=== PATIENT | male | born 1945 | race Hispanic/Latino ===

== ENCOUNTER 2018-04-12 10:57 | Observation (INO) | payer OTHER ==
[~2018-04-12] VITALS: Ht 167.6 cm; Wt 95.3 kg
[2018-04-12] MEDS ORDERED: SODIUM CHLORIDE 0.9% 1000ML 1,000 ML IV STA (11:54)
[2018-04-12] MEDS ORDERED: ASPIRIN 81 MG CHEW TAB PO ONE (12:00)
[2018-04-12 12:15] LABS: BASOPHILS # (AUTO) 0.1 (0.0-0.1); BASOPHILS % 0.6 % (0.0-1.0); EOSINOPHILS # (AUTO) 0.4 (0.0-0.4); EOSINOPHILS % 3.7 % (0.0-6.0); HEMOGLOBIN 16.8 g/dL (14.0-18.0); LYMPHOCYTES # (AUTO) 2.5 (1.0-3.2); LYMPHOCYTES % 23.6 % (18.0-39.1); MEAN CORPUSCULAR HEMOGLOBIN 28.7 pg (28-32); MEAN CORPUSCULAR HGB CONC 32.3 g/dL (31-35); MEAN CORPUSCULAR VOLUME 88.9 fL (81-99); MONOCYTES # (AUTO) 1.3 (0.2-0.8); MONOCYTES % 11.9 % (4.4-11.3); NEUTROPHILS # (AUTO) 6.3 (2.1-6.9); NEUTROPHILS % 59.7 % (38.7-80.0); PLATELET COUNT 184 x10e3/uL (140-360); RED BLOOD COUNT 5.85 x10e6/uL (4.3-5.7); RED CELL DISTRIBUTION WIDTH 14.6 % (11.7-14.4)
--- NOTE | 2018-04-12 12:27 | Diagnostic Imaging Report ---
EXAM: XR CHEST 1 VIEW DATE: 04/12/2018 11:54 AM INDICATION: Weakness COMPARISON: None FINDINGS: Lines and Tubes: None Heart and Mediastinum: Heart upper limits of normal. Mediastinum is prominent. Right paratracheal density statistically confluence vascular structures. Lungs and Pleura: Patchy opacities lung bases. Dorinda/proximal bronchi poorly evaluated. Bones and Soft Tissues: No acute findings. IMPRESSION: 1. Suboptimal exam secondary to poor technique. 2. Patchy basilar opacities could represent atelectasis, edema, or pneumonia. 3. Prominence of the mediastinum presumably technical. Correlation with history recommended. Follow-up 2 view chest x-ray upon resolution of acute symptoms recommended. Signed by: Dr. Philip Foy MD on 04/12/2018 12:23 PM
--- NOTE | 2018-04-12 12:29 | Diagnostic Imaging Report ---
EXAMINATION: Head CT HISTORY: Right upper extremity numbness COMPARISON: None. TECHNIQUE: Multidetector axial images were obtained without contrast from the foramen magnum to the vertex . The images were reconstructed using brain and bone algorithms. Thin section brain images were reformatted into coronal and sagittal planes. Intravenous contrast: None. Image quality: Motion/streaking artifact limits the evaluation of the skull base and posterior cranial fossa. Dose modulation, iterative reconstruction, and/or weight based adjustment of the mA/kV was utilized to reduce the radiation dose to as low as reasonably achievable. FINDINGS: Parenchyma: 1. Few scattered metallic or periventricular white matter hypodensities, most likely nonspecific chronic microvascular ischemic changes. Tiny chronic lacunar infarct in the left caudate nucleus. 2. No mass or hemorrhage. No CT evidence of acute territorial vascular insult. Extra-axial spaces:No abnormal density. No extra-axial fluid collections Brain volume: Normal for age. Ventricles: No hydrocephalus or displacement. Arteries: Dilatation and tortuosity of the intracranial vessels likely related to atherosclerotic, vertebrobasilar dolichoectasia. Dural sinuses: No abnormal density. Extra-axial spaces: No abnormal density. Foramen magnum: No mass, Chiari malformation, or basilar invagination. Sella: No obvious mass. Paranasal/mastoid sinuses: Imaged portions unremarkable. Skull/Scalp: No lytic or blastic lesions. No fractures. IMPRESSION: 1. No acute intracranial hemorrhage or cortical infarct. 2. Mild chronic microvascular ischemic changes. Signed by: Dr. Rosie Batista M.D. on 04/12/2018 12:25 PM
[2018-04-12 12:32] LABS: INR 0.93; PROTHROMBIN TIME 13.3 seconds (11.9-14.5)
[2018-04-12 12:33] LABS: PARTIAL THROMBOPLASTIN TIME 33.4 seconds (23.8-35.5)
[2018-04-12 12:36] LABS: CLARITY,URINE CLEAR (CLEAR); COLOR,URINE YELLOW (YELLOW); KETONES,URINE NEGATIVE (NEGATIVE); LEUKOCYTE ESTERASE ,URINE NEGATIVE (NEGATIVE); NITRITE,URINE POSITIVE (NEGATIVE); PROTEIN,URINE DIPSTICK NEGATIVE (NEGATIVE)
[2018-04-12 12:37] LABS: BILIRUBIN,URINE NEGATIVE (NEGATIVE); URINE UROBILINOGEN 0.2 mg/dL (0.2 - 1)
[2018-04-12 12:40] LABS: ALANINE AMINOTRANSFERASE 9 IU/L (0-55); ALBUMIN 3.7 g/dL (3.5-5.0); ALKALINE PHOSPHATASE 74 IU/L (40-150); ANION GAP 15.1 mmol/L (8-16); BLOOD UREA NITROGEN 17 mg/dL (7-26); BUN/CREATININE RATIO 18 (6-25); CALCIUM 9.5 mg/dL (8.4-10.2); CARBON DIOXIDE 22 mmol/L (22-29); CHLORIDE 108 mmol/L (98-107); CREATINE KINASE 165 IU/L (30-200); CREATININE, SERUM 0.96 mg/dL (0.72-1.25); EST GLOMERULAR FILTRATION RATE > 60 ML/MIN (60-); GLUCOSE 100 mg/dL (74-118); LIPASE 21 U/L (8-78); MAGNESIUM 2.2 MG/DL (1.3-2.1); POTASSIUM 4.1 mmol/L (3.5-5.1); SODIUM 141 mmol/L (136-145)
[2018-04-12 12:46] LABS: BACTERIA,URINE MODERATE /HPF; RBC,URINE 0-5 /HPF (0-5)
[2018-04-12] MEDS: SODIUM CHLORIDE 0.9% 1000ML 1,000 ML IV SCH (14:12)
[2018-04-12] MEDS ORDERED: ONDANSETRON HCL INJ 2 MG/ML VIAL IV PRN (14:15)
--- NOTE | 2018-04-12 15:28 | Diagnostic Imaging Report ---
EXAMINATION: MRI of the brain without contrast. HISTORY: Right sided upper and lower extremity weakness since this morning COMPARISON: Head CT on 04/12/2018 TECHNIQUE: Sagittal T2; axial DWI, T2, FLAIR, T1-IR, T2 gradient echo; coronal FLAIR. IMAGE QUALITY: Adequate. FINDINGS: Parenchyma: 1. Subtle focal area of DWI hyperintensity Lateral to the posterior body of the left lateral ventricle, without definite corresponding ADC map hypointensity, most likely corresponds to T2 shine through effect. 2. Few scattered and mildly confluent periventricular white matter T2 and FLAIR hyperintense foci, most likely nonspecific chronic microvascular ischemic changes. 3. Again noted tiny chronic lacunar infarct in the body of the left caudate nucleus. 4. Change small chronic cortical infarct in the right cerebellum. 5. No mass, hemorrhage, acute or chronic infarcts. Skull: Unremarkable. Vessels: Expected flow voids present in the major arteries and dural sinuses. Extra-axial spaces: No abnormal signal intensity or mass effect. Brain volume: Within normal limits for age. Ventricles: No hydrocephalus or displacement. Foramen magnum: Unremarkable. Sella: Unremarkable. Paranasal / mastoid sinuses: No significant inflammatory disease. IMPRESSION: 1. No acute infarcts. 2. Mild chronic microvascular ischemic changes. Signed by: Dr. Rosie Batista M.D. on 04/12/2018 3:25 PM
[2018-04-12] MEDS ORDERED: SODIUM CHLORIDE 0.9% 50ML 50 ML ONE (15:40)
[2018-04-12] MEDS: CEFTRIAXONE SOD 1 GM VIAL IV SCH (15:45)
[2018-04-12 17:38] VITALS: BP 133/67
[2018-04-12 17:39] VITALS: BP 133/67
[2018-04-12 17:44] VITALS: BP 133/67
[2018-04-12] MEDS ORDERED: DOXAZOSIN MESYLA2 MG PO (17:57)
[2018-04-12] MEDS ORDERED: LEVOTHYROXINE50 MCG PO (17:57)
[2018-04-12] MEDS ORDERED: FINASTERIDE5 MG PO (17:57)
[2018-04-12 20:00] VITALS: BP 121/71
[2018-04-12 22:15] VITALS: BP 114/68
[2018-04-13] MEDS: SODIUM CHLORIDE 0.9% 1000ML 1,000 ML IV SCH ×2 (00:12→08:55)
[2018-04-13 01:01] LABS: CREATINE KINASE 115 IU/L (30-200)
[2018-04-13 03:30] VITALS: BP 117/71
[2018-04-13 05:26] LABS: BASOPHILS % 0.4 % (0.0-1.0); EOSINOPHILS # (AUTO) 0.5 (0.0-0.4); EOSINOPHILS % 4.7 % (0.0-6.0); HEMATOCRIT 48.3 % (38.2-49.6); HEMOGLOBIN 15.8 g/dL (14.0-18.0); LYMPHOCYTES # (AUTO) 2.1 (1.0-3.2); LYMPHOCYTES % 21.8 % (18.0-39.1); MEAN CORPUSCULAR HEMOGLOBIN 29.3 pg (28-32); MEAN CORPUSCULAR HGB CONC 32.7 g/dL (31-35); MEAN CORPUSCULAR VOLUME 89.4 fL (81-99); MONOCYTES # (AUTO) 1.1 (0.2-0.8); MONOCYTES % 11.5 % (4.4-11.3); NEUTROPHILS % 61.1 % (38.7-80.0); PLATELET COUNT 177 x10e3/uL (140-360); RED CELL DISTRIBUTION WIDTH 14.8 % (11.7-14.4)
[2018-04-13 05:53] LABS: ALANINE AMINOTRANSFERASE 8 IU/L (0-55); ALBUMIN 3.2 g/dL (3.5-5.0); ALKALINE PHOSPHATASE 62 IU/L (40-150); ANION GAP 13.5 mmol/L (8-16); BLOOD UREA NITROGEN 14 mg/dL (7-26); BUN/CREATININE RATIO 13 (6-25); CALCIUM 8.8 mg/dL (8.4-10.2); CARBON DIOXIDE 24 mmol/L (22-29); CHLORIDE 109 mmol/L (98-107); CREATINE KINASE 99 IU/L (30-200); CREATININE, SERUM 1.04 mg/dL (0.72-1.25); EST GLOMERULAR FILTRATION RATE > 60 ML/MIN (60-); GLUCOSE 97 mg/dL (74-118); POTASSIUM 4.5 mmol/L (3.5-5.1); SODIUM 142 mmol/L (136-145)
[2018-04-13 08:00] VITALS: BP 126/71
[2018-04-13 08:30] VITALS: BP 126/71
[2018-04-13 08:32] VITALS: BP 126/71
[2018-04-13] MEDS ORDERED: ASPIRIN 81 MG ENTERIC COATED PO ONE (09:03)
[2018-04-13] MEDS ORDERED: FINASTERIDE 5 MG TAB PO SCH (09:15)
[2018-04-13] MEDS ORDERED: DOXAZOSIN MESYLATE 2 MG TAB PO SCH (09:15)
[2018-04-13] MEDS ORDERED: MECLIZINE HCL 12.5 MG TAB PO PRN (09:15)
[2018-04-13] MEDS ORDERED: LEVOTHYROXINE SODIUM 50 MCG TAB PO SCH (09:15)
[2018-04-13] MEDS ORDERED: MECLIZINE HCL 12.5 MG TAB PO ONE (09:15)
--- NOTE | 2018-04-13 11:14 | History and Physical ---
[facility] PRIMARY CARE PHYSICIAN: Not known. CHIEF COMPLAINT: Right-sided weakness. HISTORY: Patient is a 72-year-old male with a urinary tract infection. The patient does have enlarged prostate and low thyroid level, taking levothyroxine, finasteride and doxazosin. The patient is stable. He had multiple imaging tests done in the emergency room. The CAT scan of the brain was negative and scanning with brain MRI showed that he has no acute infarct. He does have mild chronic microvascular ischemic changes. Patient is otherwise stable other than complaint of some numbness to the right facial area along with the right-sided upper and lower extremity weakness. Patient is improving. He walked with a cane to the right side. PAST MEDICAL HISTORY: Enlarged prostate, hypothyroidism, and osteoarthritis. PAST SURGICAL HISTORY: Hernia repair and left foot surgery. SOCIAL HISTORY: Patient does not smoke or use alcohol. No recreational drugs. ALLERGIES: NO KNOWN ALLERGY. HOME MEDICATIONS: Levothyroxine, doxazosin, and finasteride. PHYSICAL EXAMINATION VITAL SIGNS: Temperature 97, blood pressure 126/71, pulse rate 72, respirations 18. GENERAL: Patient is in no acute distress. He is awake. HEENT: Normocephalic, atraumatic. Sclerae anicteric. NECK: Supple grossly. PULMONARY: Diminished breath sounds, but without any wheezing or rales. CARDIOVASCULAR: S1 and S2. Regular rate and rhythm. ABDOMEN: Soft. Obese. Nontender, no distension. EXTREMITIES: No cyanosis, clubbing, or edema. NEUROLOGIC: Grossly no focal deficit other than symptomatic dizziness and numbness of the right thigh. LABORATORY DATA: Sodium is 142, potassium 4.5, chloride 109, bicarb 24, BUN 14, creatinine 1.0, and glucose 97. WBC 9.8, hemoglobin 15.8, hematocrit 48.3, and platelets are 177. IMAGING: MRI of the brain without contrast, CT scan without contrast, and chest x-ray are all unremarkable. IMPRESSION 1. Dizziness, could be secondary to benign positional vertigo. 2. Enlarged prostate with most likely early prostatitis. His urinalysis had shown that he has positive nitrate, negative for leukocyte esterase, and moderate bacteria. Microbiology is still pending. PLAN: Continue with Rocephin. Resume home medications. Discontinue IV fluids. Give the patient meclizine as needed. Carotid Doppler and echocardiogram and if those are negative preliminary, the patient may go home with a baby aspirin and Cipro. The patient is otherwise stable. Prescription on chart in case patient will go home today. Job#: [id number] ADAM
[2018-04-13 11:34] VITALS: BP 116/56
[2018-04-13 13:49] LABS: CREATINE KINASE 89 IU/L (30-200)
[2018-04-13] MEDS: CEFTRIAXONE SOD 1 GM VIAL IV SCH (15:12)
[2018-04-13] MEDS ORDERED: CIPRO500 MG PO (16:07)
[2018-04-13] MEDS ORDERED: MECLIZINE HCL12.5 MG PO (16:07)
[2018-04-13] MEDS ORDERED: ECOTRIN81 MG (16:08)
[2018-04-13] MEDS ORDERED: ACETAMINOPHEN 325 MG TAB PO ONE (16:15)
[2018-04-14] MEDS ORDERED: ASPIRIN 81 MG ENTERIC COATED PO SCH (09:00)
--- OUTSIDE RECORDS SUMMARY | 2018-04-14 14:06 | XMS REPORT ---
Author Author [facility] Address Unknown Phone Unavailable Care Team Providers Care Medical Specialist Name Role Phone Naya HAWKINS Unavailable Unavailable Problems This patient has no known problems. Allergies, Adverse Reactions, Alerts This patient has no known allergies or adverse reactions. Medications This patient has no known medications. Results Test Description Test Time Test Comments Text Results Atomic Results Result Comments MRI BRAIN WO 2018-04-12 15:21:00 [place] [address] Patient Name: SYED LANDIS MR #: [id number] : 1945 Age/Sex: 72/M Req #: [id number] Adm Physician: EVELYN HAWKINS Ordered by: YULIANA ROACH [employer]INE[employer]ING [employer] LIAISON Report #: [id number] Location: [facility] Room/Bed: [place] [address] Procedure: [id number] MRI/MRI BRAIN WO Exam Date: Exam Time: REPORT STATUS: Signed EXAMINATION: MRI of the brain without contrast. HISTORY: Right sided upper and lower extremity weakness since this morning COMPARISON: Head CT on 04/12/2018 TECHNIQUE: Sagittal T2; axial DWI, T2, FLAIR, T1-IR, T2 gradient echo; coronal FLAIR. IMAGE QUALITY: Adequate. FINDINGS: Parenchyma: 1. Subtle focal area of DWI hyperintensity Lateral to the posterior body of the left lateral ventricle, without definite corresponding ADC map hypointensity, most likely corresponds to T2 shine through effect. 2. Few scattered and mildly confluent periventricular white matter T2 and FLAIR hyperintense foci, most likely nonspecific chronic microvascular ischemic changes. 3. Again noted tiny chronic lacunar infarct in the body of the left caudate nucleus. 4. Change small chronic cortical infarct in the right cerebellum. 5. No mass, hemorrhage, acute or chronic infarcts. Skull: Unremarkable. Vessels: Expected flow voids present in the major arteries and dural sinuses. Extra-axial spaces: No abnormal signal intensity or mass effect. Brain volume: Within normal limits for age. Ventricles: No hydrocephalus or displacement. Foramen magnum: Unremarkable. Sella: Unremarkable. Paranasal / mastoid sinuses: No significant inflammatory disease. IMPRESSION: 1. No acute infarcts. 2. Mild chronic microvascular ischemic changes. Signed by: Dr. Libby Batista M.D. on 04/12/2018 3:25 PM Dictated By: LIBBY BATISTA MD 1525 Transcribed By: OLGA on 04/12/18 1525 COPY TO: YULIANA ROACH NP CT BRAIN WO 2018-04-12 12:23:00 [place] [address] Patient Name: SYED LANDIS MR #: [id number] : 1945 Age/Sex: 72/M Req #: [id number] Adm Physician: Ordered by: YULIANA ROACH NP Report #: [id number] Location: ER Room/Bed: Procedure: [id number] CT/CT BRAIN WO Exam Date: 04/12/18 Exam Time: 1210 REPORT STATUS: Signed EXAMINATION: Head CT HISTORY: Right upper extremity numbness COMPARISON: None. TECHNIQUE: Multidetector axial images were obtained without contrast from the foramen magnum to the vertex . The images were reconstructed using brain and bone algorithms. Thin section brain images were reformatted into coronal and sagittal planes. Intravenous contrast: None. Image quality: Motion/streaking artifact limits the evaluation of the skull base and posterior cranial fossa. Dose modulation, iterative reconstruction, and/or weight based adjustment of the mA/kV was utilized to reduce the radiation dose to as low as reasonably achievable. FINDINGS: Parenchyma: 1. Few scattered metallic or periventricular white matter hypodensities, most likely nonspecific chronic microvascular ischemic changes. Tiny chronic lacunar infarct in the left caudate nucleus. 2. No mass or hemorrhage. No CT evidence of acute territorial vascular insult. Extra-axial spaces:No abnormal density. No extra-axial fluid collections Brain volume: Normal for age. Ventricles: No hydrocephalus or displacement. Arteries: Dilatation and tortuosity of the intracranial vessels likely related to atherosclerotic, vertebrobasilar dolichoectasia. Dural sinuses: No abnormal density. Extra-axial spaces: No abnormal density. Foramen magnum: No mass, Chiari malformation, or basilar invagination. Sella: No obvious mass. Paranasal/mastoid sinuses: Imaged portions unremarkable. Skull/Scalp: No lytic or blastic lesions. No fractures. IMPRESSION: 1. No acute intracranial hemorrhage or cortical infarct. 2. Mild chronic microvascular ischemic changes. Signed by: Dr. Libby Batista M.D. on 04/12/2018 12:25 PM Dictated By: LIBBY BATISTA MD 1225 Transcribed By: OLGA on 04/12/18 1225 COPY TO: YULIANA ROACH NP CHEST SINGLE (PORTABLE) 2018-04-12 12:21:00 [place] [address] Patient Name: SYED LANDIS MR #: [id number] : 1945 Age/Sex: 72/M Req #: [id number] Adm Physician: Ordered by: YULIANA ROACH NP Report #: [id number] Location: ER Room/Bed: Procedure: [id number] DX/CHEST SINGLE (PORTABLE) Exam Date: 04/12/18 Exam Time: 1210 REPORT STATUS: Signed EXAM: XR CHEST 1 VIEW DATE: 04/12/2018 11:54 AM INDICATION: Weakness COMPARISON: None FINDINGS: Lines and Tubes: None Heart and Mediastinum: Heart upper limits of normal. Mediastinum is prominent. Right paratracheal density statistically confluence vascular structures. Lungs and Pleura: Patchy opacities lung bases. Dorinda/proximal bronchi poorly evaluated. Bones and Soft Tissues: No acute findings. IMPRESSION: 1. Suboptimal exam secondary to poor technique. 2. Patchy basilar opacities could represent atelectasis, edema, or pneumonia. 3. Prominence of the mediastinum presumably technical. Correlation with history recommended. Follow-up 2 view chest x-ray upon resolution of acute symptoms recommended. Signed by: Dr. Philip Foy MD on 04/12/2018 12:23 PM Dictated By: PHILIP FOY MD 1223 Transcribed By: OLGA on 04/12/183 COPY TO: YULIANA ROACH NP
== END 2018-04-13 17:05 | disposition home or self-care (01) ==
LOC: ER 10:57 → ERHOLD 14:12 → IMCU 17:16
PROVIDERS: ADMIT Internal Medicine; ATTEND Internal Medicine
DX: N39.0 Urinary tract infection, site not specified (principal); R42 Dizziness and giddiness; R53.1 Weakness; E03.9 Hypothyroidism, unspecified; N40.0 Benign prostatic hyperplasia without lower urinary tract symptoms; I08.1 Rheumatic disorders of both mitral and tricuspid valves; B96.20 Unspecified Escherichia coli [E. coli] as the cause of diseases classified elsewhere
CPT/HCPCS: 36415; 70450; 70551; 71045; 80053 ×2; 81001; 82550 ×2; 82553 ×2; 83690; 83735; 83880; 84443; 84484 ×2; 85025 ×2; 85610; 85730; 87086; 87186; 87400; 93005; 93306; 93880; 99284; G0378 ×2; J0696 ×2; J7030 ×2

== ENCOUNTER 2019-08-13 18:57 | Inpatient (IN) | payer OTHER ==
[~2019-08-13] VITALS: Ht 172.7 cm; Wt 100.2 kg
[~2019-08-13 18:57] MED LIST: CIPRO500 MG PO; DOXAZOSIN MESYLA2 MG PO; ECOTRIN81 MG; FINASTERIDE5 MG PO; LEVOTHYROXINE50 MCG PO; MECLIZINE HCL12.5 MG PO
[2019-08-13] MEDS ORDERED: SODIUM CHLORIDE 0.9% 1000ML 1,000 ML IV SCH (19:45)
[2019-08-13] MEDS ORDERED: ACETAMINOPHEN 325 MG TAB PO ONE (19:45)
[2019-08-13] MEDS ORDERED: CEFEPIME 2 GM/NS 0.9% 100 ML 100 ML IV ONE (19:45)
[2019-08-13 20:01] LABS: BASOPHILS % 0.2 % (0.0-1.0); EOSINOPHILS % 0.1 % (0.0-6.0); HEMATOCRIT 48.8 % (38.2-49.6); HEMOGLOBIN 15.9 g/dL (14.0-18.0); LYMPHOCYTES # (AUTO) 0.9 (1.0-3.2); LYMPHOCYTES % 4.9 % (18.0-39.1); MEAN CORPUSCULAR HEMOGLOBIN 28.3 pg (28-32); MEAN CORPUSCULAR HGB CONC 32.6 g/dL (31-35); MONOCYTES % 11.4 % (4.4-11.3); NEUTROPHILS # (AUTO) 14.8 (2.1-6.9); NEUTROPHILS % 82.8 % (38.7-80.0); PLATELET COUNT 198 x10e3/uL (140-360); RED BLOOD COUNT 5.61 x10e6/uL (4.3-5.7); RED CELL DISTRIBUTION WIDTH 14.7 % (11.7-14.4)
[2019-08-13 20:12] LABS: INR 1.15; PROTHROMBIN TIME 15.5 seconds (11.9-14.5)
[2019-08-13 20:13] LABS: PARTIAL THROMBOPLASTIN TIME 41.7 seconds (23.8-35.5)
[2019-08-13 20:22] LABS: ALANINE AMINOTRANSFERASE 8 IU/L (0-55); ALBUMIN 3.1 g/dL (3.5-5.0); ALBUMIN/GLOBULIN RATIO 0.8 (0.8-2.0); ALKALINE PHOSPHATASE 65 IU/L (40-150); ANION GAP 15.8 mmol/L (8-16); BLOOD UREA NITROGEN 18 mg/dL (7-26); BUN/CREATININE RATIO 16 (6-25); CALCIUM 8.7 mg/dL (8.4-10.2); CARBON DIOXIDE 18 mmol/L (22-29); CHLORIDE 103 mmol/L (98-107); CREATININE, SERUM 1.13 mg/dL (0.72-1.25); EST GLOMERULAR FILTRATION RATE > 60 ML/MIN (60-); GLUCOSE 114 mg/dL (74-118); POTASSIUM 3.8 mmol/L (3.5-5.1); SODIUM 133 mmol/L (136-145)
[2019-08-13 20:24] LABS: BILIRUBIN,URINE NEGATIVE (NEGATIVE); CLARITY,URINE SL CLOUDY (CLEAR); COLOR,URINE YELLOW (YELLOW); KETONES,URINE TRACE (NEGATIVE); LEUKOCYTE ESTERASE ,URINE TRACE (NEGATIVE); NITRITE,URINE POSITIVE (NEGATIVE); PROTEIN,URINE DIPSTICK 1+ (NEGATIVE); URINE UROBILINOGEN 1 mg/dL (0.2 - 1)
[2019-08-13 20:38] LABS: BACTERIA,URINE MODERATE /HPF; EPITHELIAL CELLS,URINE FEW /LPF
[2019-08-13 20:48] LABS: CREATINE KINASE 458 IU/L (30-200)
--- NOTE | 2019-08-13 20:58 | Diagnostic Imaging Report ---
EXAM: XR CHEST 1 VIEW INDICATION: Fever. Fall. Weakness. COMPARISON: 04/12/2018. FINDINGS: Soft tissue attenuation particularly in the left lower hemithorax. Lines and Tubes: None Heart and Mediastinum: Cardiac silhouette is prominent, likely magnification by technique. Lungs and Pleura: The lungs are mildly hyperinflated. Patchy density in the lung bases suggestive of atelectasis. Bones and Soft Tissues: No acute displaced fracture. IMPRESSION: Suboptimal inflation. Bibasilar subsegmental atelectasis. Signed by: Dr. Luciano Rey M.D. on 08/13/2019 8:55 PM
[2019-08-13] MEDS: SODIUM CHLORIDE 0.9% 1000ML 1,000 ML IV SCH ×2 (21:04→23:08)
--- NOTE | 2019-08-13 21:35 | Diagnostic Imaging Report ---
EXAMINATION: Head and cervical spine CT without contrast. HISTORY: Status post fall, weakness, trauma COMPARISON: Head CT 04/12/2018 TECHNIQUE: Multidetector axial images were obtained without contrast from the foramen magnum to the vertex and through the cervical spine. The images were reconstructed using brain and bone algorithms. Thin section brain images were reformatted into coronal and sagittal planes. Dose modulation, iterative reconstruction, and/or weight based adjustment of the mA/kV was utilized to reduce the radiation dose to as low as reasonably achievable. Image quality: Artifact from patient motion limits evaluation of the skull base/posterior cranial fossa, however this images were repeated.. HEAD CT FINDINGS: Skull/scalp: No lytic or blastic lesions. No fractures. Parenchyma: Persistent mild white matter chronic microvascular ischemic changes and a small chronic lacunar infarct in the left probably due to. No mass, hemorrhage or CT evidence of acute vascular insult. Brain volume: Normal for age. Ventricles: No hydrocephalus or displacement. Arteries: Elongation, dilatation, tortuosity and increased density of the vertebral basilar arteries, likely from atherosclerosis with dolichoectasia . Dural sinuses: No abnormal density. Extra-axial spaces: No abnormal density. Foramen magnum: No mass, Chiari malformation, or basilar invagination. Sella: No obvious mass. Paranasal/mastoid sinuses: Imaged portions unremarkable. CERVICAL SPINE CT FINDINGS: Alignment:Reversal of the cervical lordosis which may be related to multiple spot positional.. Soft tissues: Normal. Vertebrae: Normal height and density. No acute fracture, infection or neoplasm. Degenerative changes: Mild degenerative changes at C5-C6 and C6-C7 without significant spinal canal or foraminal stenoses. IMPRESSION: Head CT: 1. No acute postraumatic intracranial hemorrhage. 2. Mild chronic microvascular ischemic changes, stable compared to head CT of 04/12/2018. Cervical spine CT: 1. No acute fractures or dislocations. 2. Chronic degenerative changes as described. Note: Acute post traumatic spinal cord, vascular or ligamentous injury cannot adequately be assessed with CT. Signed by: Dr. Rosie Batista M.D. on 08/13/2019 9:32 PM
[2019-08-13] MEDS ORDERED: SODIUM CHLORIDE 0.9% 1000ML 1,000 ML IV ONE ×2 (22:00→22:15)
[2019-08-13] MEDS ORDERED: LOPERAMIDE2 MG PO (22:13)
--- NOTE | 2019-08-13 22:30 | NUR ---
Patient remains alert and oriented and states he feels better. Will continue to monitor patient closely due to blood pressure. MD aware of vital signs.
--- NOTE | 2019-08-13 22:37 | Diagnostic Imaging Report ---
EXAM: Scrotal Ultrasound with Duplex INDICATION: Scrotal pain COMPARISON: None TECHNIQUE: Transverse and longitudinal images were obtained of the scrotum with grayscale imaging, color Doppler and spectral waveform analysis. FINDINGS: Right testis: Size: 4.1 x 2 x 3.2 cm, normal in size. Echogenicity: Normal Mass/Cysts: Small right intratesticular cyst. Left testis: Size: 3.6 x 3.3 x 3.6 cm, normal in size. Echogenicity: Mildly heterogeneous relative to the right testicle. Mass/Cysts: None Epididymis: Appearance: Thickened echogenic left epididymis with increased vascularity.Normal in size without increased vascularity. Mass/Cysts: A few tiny epididymal cyst. Extratesticular: Masses: None Hydrocele: Small left hydrocele with thin reticular echogenicity. Varicocele: None Left scrotal wall edema. Doppler: Normal arterial flow to both testes and symmetrical flow on color Doppler evaluation is seen. No evidence of testicular torsion. IMPRESSION: 1. No evidence of testicular torsion. 2. Findings concerning for left epididymoorchitis. Signed by: Javed Purvis DO on 08/13/2019 10:35 PM
[2019-08-13] MEDS ORDERED: ONDANSETRON HCL INJ 2MG/ML 2ML 2 MG/ML VIAL IV PRN (23:00)
[2019-08-14] VITALS (26 sets, daily range): BP systolic 91–134; BP diastolic 53–75
[2019-08-14] MEDS ORDERED: CEFEPIME 1GM/NS 0.9% 50 ML 100 ML IV ONE (04:33)
[2019-08-14] MEDS ORDERED: SODIUM CHLORIDE 0.9% 1000ML 1,000 ML ONE (04:34)
[2019-08-14] MEDS: SODIUM CHLORIDE 0.9% 1000ML 1,000 ML IV SCH ×3 (05:12→12:04)
[2019-08-14] MEDS ORDERED: CEFEPIME 2 GM/NS 0.9% 100 ML 100 ML IV SCH (06:00)
[2019-08-14] MEDS: ACETAMINOPHEN 325 MG TAB PO PRN ×2 (07:12→16:39)
[2019-08-14] MEDS ORDERED: ACETAMINOPHEN 325 MG TAB ONE ×2 (07:12→16:33)
[2019-08-14] MEDS ORDERED: LEVOFLOXACIN 500MG/D5W 100ML 100 ML IV SCH (09:30)
[2019-08-14] MEDS ORDERED: AZTREONAM 1 GM/NS 50 ML 50 ML IV SCH (11:45)
[2019-08-14] MEDS: LOPERAMIDE HCL 2 MG CAP PO PRN (12:08)
[2019-08-14] MEDS: CLINDAMYCIN 300MG 50 ML IV SCH ×2 (12:24→17:18)
[2019-08-14] MEDS: AZTREONAM 1 GM/NS 50 ML 50 ML IV SCH ×2 (13:56→21:44)
--- NOTE | 2019-08-14 14:15 | NUR ---
POST RESIDUAL VOID DONE, PT VOIDED 125CC OF URINE BLADDER ULTRASOUND DONE 72-76CC NOTED PRV AT THIS TIME. DR. DURAND NOTIFIED NO INTERVENTION TO BE DONE AT THIS TIME
[2019-08-14] MEDS: LACTOBACILLUS ACIDOPHILUS CAPSULE PO SCH ×2 (15:58→20:52)
--- NOTE | 2019-08-14 17:14 | Consultation ---
DATE OF CONSULTATION: Critical Care Consultation Patient of Dr. Andrade, Dr. Vanegas, and Dr. Mccabe. HISTORY OF PRESENT ILLNESS: Unfortunate 74-year-old gentleman admitted with weakness and dizziness, apparently fell from a chair without injury. Admitted with inflamed left testicle, dysuria, and nausea. He denies recent biopsy, but did have an ultrasound exam of the prostate on the . ALLERGIES: NO KNOWN ALLERGIES. MEDICATIONS: He takes medication for his prostate and for thyroid replacement. Home medications have included: 1. Doxazosin. 2. Finasteride. 3. Levaquin. 4. Imodium. FAMILY HISTORY: Positive for colon cancer. SOCIAL HISTORY: He does not smoke or drink. Worked as a dairyman. Born in [facility] in [facility]. PHYSICAL EXAMINATION: GENERAL: Burly white male, in no acute distress, complaining of pain and hunger and thirst for coughing. VITAL SIGNS: Temperature 97.4, pulse 68, respirations 28, and blood pressure 95/80. HEAD: Normocephalic and atraumatic. EYES: Extraocular movements are intact. LUNGS: Clear anteriorly. HEART: Regular rhythm. ABDOMEN: Obese. There is swelling and extreme tenderness of left testicle and cord. EXTREMITIES: Nonedematous. ASSESSMENT: Urinary sepsis, epididymo-orchitis. PLAN: Empiric antibiotics. Currently on cefepime. We will add Levaquin pending results of cultures. There is also a history of diarrhea. Thank you for this kind referral. MD SAUMYA Alonso/MODL /[id number]
[2019-08-14] MEDS ORDERED: ALBUTEROL/IPRATROPIUM 3 ML NEB NEB PRN (18:15)
[2019-08-14] MEDS: ALBUTEROL/IPRATROPIUM 3 ML NEB NEB SCH ×2 (18:17→22:55)
--- NOTE | 2019-08-14 19:00 | NUR ---
Report received. Assumed care. Assessment done. See interventions.
--- NOTE | 2019-08-14 19:29 | History and Physical ---
PRIMARY CARE PHYSICIAN: Billy Mccabe MD CONSULTANTS: 1. Trupti Culver MD. 2. Faustino Vanegas MD. CHIEF COMPLAINT: Sepsis with shock, fever, left orchitis, groin pain, leukocytosis. HISTORY: The patient is a 74-year-old male, who came in with generalized weakness and fell early at home. The patient was trying to sit down and slid to the floor area. The patient also complained that he had left testicular area swollen and painful. He is also having fever. The patient came to the emergency room and had vital signs with low systolic blood pressure was 88/61. He had a temperature of 101. The patient was started on IV antibiotics and transferred to the ICU. The patient had multiple imaging done and a Doppler ultrasound showed that the patient had left epididymo-orchitis. The patient's urinalysis also is showing 2+ blood, positive nitrate, positive leukocyte esterase, moderate bacteria with wbc's of 11-20. The patient is admitted. He is currently stable, receiving IV antibiotics. PAST MEDICAL HISTORY: Enlarged prostate with recent examination. He has hypothyroidism and osteoarthritis. PAST SURGICAL HISTORY: Left foot surgery and hiatal hernia repair. SOCIAL HISTORY: The patient does not smoke or use alcohol. No regular drugs. ALLERGIES: NO KNOWN ALLERGIES. HOME MEDICATIONS: 1. Doxazosin. 2. Finasteride. 3. Levothyroxine. 4. Loperamide p.r.n. for diarrhea. PHYSICAL EXAMINATION: VITAL SIGNS: Temperature is 101, blood pressure is 95/58, pulse rate 58, respirations 18. GENERAL: The patient is not in acute distress. He is awake. HEENT: Normocephalic and atraumatic. Anicteric. NECK: Supple grossly. PULMONARY: Diminished breath sounds. CARDIOVASCULAR: S1, S2. Tachycardia. ABDOMEN: Soft. : Groin area, left scrotal tenderness and swelling. The testicle is hard and tender to touch. EXTREMITIES: No cyanosis or edema. NEUROLOGIC: No focal deficit. LABORATORY DATA: WBC is 17.8, hemoglobin 15.9, hematocrit 48.8, and platelets 198. Sodium is 133, potassium 3.8, chloride 103, bicarb 18, BUN 18, creatinine 1.1, glucose 114. Imaging done showed left epididymo-orchitis. IMPRESSION: 1. Sepsis with shock, improving. 2. Urinary tract infection with epididymo-orchitis. 3. Leukocytosis and fever. PLAN: IV antibiotics. Home medications. I will follow up with Dr. Aramis Vanegas, his urologist. We will monitor the patient closely and adjust medication. MD MARYANN Miranda/JEANNE /[id number]
--- NOTE | 2019-08-14 19:49 | Consultation ---
DATE OF CONSULTATION: 08/13/2019 REASON FOR CONSULTATION: UTI, orchitis, and urinary urgency with frequency and feeling of incomplete voiding. HISTORY OF PRESENT ILLNESS: This is a 74-year-old male who comes to the hospital with a complaint of 24 hours of testicular pain and discomfort, particularly on the right side and swelling of the testicle. The patient was seen in my office last year for frequency of urination, urgency, dribbling, weakness, slowing of urinary stream, and nocturia 4-5. He stated that has been going on for approximately one year. He has been taking finasteride and doxazosin. The patient underwent evaluation at that time. Ultrasound of the prostate revealed a prostate to be 88 g and full of stones and cystoscopy was performed, which showed severe hyperplasia with severe overgrowth of polyps with severe enlargement of blood vessels at the bladder neck and the apex of the prostate with a large intravesical component and the bladder to have moderate to severe trabeculation with cellules and saccules. At that time, the patient also underwent evaluation with a voiding flow test. The voiding flow today showed the patient could only urinate approximately 60-65 mL and he had between 75 and 80 mL residual in the bladder each time that he took the voiding flow test, could not get him to hold any more urine, he developed severe urgency and urge incontinence. At that time, the patient and I discussed treatment. We said that with evaluation we needed to remove as much of the prostatic stones as possible. I have stated that an open procedure would remove the whole prostate, but that he will require a 5-7 day hospitalization, blood loss and a catheter for 2-3 weeks. If we do a two-stage TURP, had to remove 40 g of tissue each time, remove as much as the stones as possible, but he may require just one surgery since he might be able to urinate fine. We also discussed the fact that after such an operation because of the bladder health that he has that he would have perhaps even worse urgency incontinence that he has now for 2-4 months and that he may have to wear diapers. I discussed that also in front of his family, particularly his daughter. ALLERGIES: NO ALLERGIES. MEDICATIONS: Finasteride, Flomax, levothyroxine 50 mcg daily, and omeprazole 40 mg daily. PAST SURGICAL HISTORY: Thumb fracture surgery on the left side and hernia repair, umbilicus. SOCIAL HISTORY: He is . Does not smoke. He quit. He has never drank. Does not use illegal drugs. Drinks 2 cups of coffee a day. Has not had any blood transfusion and has had 4 children. At the present time, he is impotent. PHYSICAL EXAMINATION: Examination as dictated above. Swelling of the testicle, particularly the right one. No inguinal hernias are palpable. IMPRESSION: Orchitis, seminal vesiculitis and epididymitis with benign prostatic hypertrophy, severe prostatic overgrowth with abnormal bladder. RECOMMENDATION: Currently IV antibiotics for the next few days until his pain defervesce as well as the white blood cell count after that home on oral antibiotics, will await on the urine culture and then after that operate on his prostate. He is scheduled for the . We will see if he is ready to do that. I will ask the nurses to measure his postvoid residual and to call me with the results. Thank you very much. MD ROSANGELA Mcgregor/JEANNE /[id number]
[2019-08-14 20:09] LABS: ABG HCO3 18 mmol/L (23-28); ABG PCO2 30 mmHg (41-51); ABG PO2 86 mmHg (80-105)
[2019-08-14] MEDS: HEPARIN SOD (PORCINE) 5,000 UNIT/ML VIAL SC SCH (20:54)
[2019-08-14] MEDS: CITRIC ACID/SODIUM CITRATE 30 ML UDC PO SCH (23:56)
[2019-08-15] VITALS (25 sets, daily range): BP systolic 85–141; BP diastolic 46–118
[2019-08-15] MEDS: CLINDAMYCIN 300MG 50 ML IV SCH ×5 (00:09→23:38)
[2019-08-15] MEDS: ACETAMINOPHEN 325 MG TAB PO PRN ×2 (02:26→18:41)
--- NOTE | 2019-08-15 02:26 | NUR ---
Medicated for c/o headache.
[2019-08-15] MEDS ORDERED: ACETAMINOPHEN 325 MG TAB ONE ×2 (02:29→18:44)
[2019-08-15] MEDS: ALBUTEROL/IPRATROPIUM 3 ML NEB NEB SCH ×6 (02:30→23:50)
[2019-08-15] MEDS: AZTREONAM 1 GM/NS 50 ML 50 ML IV SCH ×3 (05:30→21:54)
[2019-08-15] MEDS: LEVOTHYROXINE SODIUM 50 MCG TAB PO SCH (06:20)
[2019-08-15 06:31] LABS: BASOPHILS % 0.3 % (0.0-1.0); EOSINOPHILS # (AUTO) 0.2 (0.0-0.4); EOSINOPHILS % 1.4 % (0.0-6.0); HEMATOCRIT 41.7 % (38.2-49.6); HEMOGLOBIN 13.3 g/dL (14.0-18.0); LYMPHOCYTES % 9.3 % (18.0-39.1); MEAN CORPUSCULAR HEMOGLOBIN 28.5 pg (28-32); MEAN CORPUSCULAR HGB CONC 31.9 g/dL (31-35); MEAN CORPUSCULAR VOLUME 89.3 fL (81-99); MONOCYTES # (AUTO) 1.4 (0.2-0.8); MONOCYTES % 13.3 % (4.4-11.3); NEUTROPHILS # (AUTO) 7.9 (2.1-6.9); NEUTROPHILS % 75.1 % (38.7-80.0); PLATELET COUNT 149 x10e3/uL (140-360); RED BLOOD COUNT 4.67 x10e6/uL (4.3-5.7); RED CELL DISTRIBUTION WIDTH 15.1 % (11.7-14.4)
[2019-08-15 06:48] LABS: ANION GAP 12.2 mmol/L (8-16); BLOOD UREA NITROGEN 17 mg/dL (7-26); BUN/CREATININE RATIO 22 (6-25); CARBON DIOXIDE 19 mmol/L (22-29); CHLORIDE 109 mmol/L (98-107); CREATININE, SERUM 0.78 mg/dL (0.72-1.25); EST GLOMERULAR FILTRATION RATE > 60 ML/MIN (60-); GLUCOSE 89 mg/dL (74-118); POTASSIUM 3.2 mmol/L (3.5-5.1); SODIUM 137 mmol/L (136-145)
--- NOTE | 2019-08-15 08:01 | Diagnostic Imaging Report ---
EXAM: XR CHEST 1 VIEW INDICATION: Shortness of breath. COMPARISON: 08/13/2019. FINDINGS: Lines and Tubes: None Heart and Mediastinum: The cardiac silhouette is mildly to moderately enlarged. Widened mediastinum. Prominent pulmonary artery bilaterally suggestive of enlarged pulmonary arteries. Lungs and Pleura: Bilateral pulmonary venous congestion worsened since the prior examination. Patchy density in the lung bases suggestive of atelectasis. Bilateral small pleural effusions. Bones and Soft Tissues: No acute displaced fracture. IMPRESSION: Bilateral pulmonary venous congestion and interstitial edema. Pulmonary hypertension. Signed by: Dr. Luciano Rey M.D. on 08/15/2019 7:59 AM
[2019-08-15] MEDS: CITRIC ACID/SODIUM CITRATE 30 ML UDC PO SCH ×2 (08:59→17:17)
[2019-08-15] MEDS: LACTOBACILLUS ACIDOPHILUS CAPSULE PO SCH ×3 (08:59→21:54)
[2019-08-15] MEDS: HEPARIN SOD (PORCINE) 5,000 UNIT/ML VIAL SC SCH ×2 (09:00→21:00)
[2019-08-15] MEDS: BENZONATATE 100 MG CAP PO PRN ×3 (09:37→21:54)
[2019-08-15] MEDS ORDERED: POTASSIUM CHLORIDE 10MEQ EA PO ONE (10:00)
[2019-08-16] VITALS (22 sets, daily range): BP systolic 99–136; BP diastolic 52–92
[2019-08-16] MEDS: ALBUTEROL/IPRATROPIUM 3 ML NEB NEB SCH ×6 (03:00→23:05)
[2019-08-16] MEDS: LEVOTHYROXINE SODIUM 50 MCG TAB PO SCH (06:35)
[2019-08-16] MEDS: CLINDAMYCIN 300MG 50 ML IV SCH ×3 (06:35→17:27)
[2019-08-16] MEDS: AZTREONAM 1 GM/NS 50 ML 50 ML IV SCH ×3 (06:35→21:14)
[2019-08-16] MEDS: HEPARIN SOD (PORCINE) 5,000 UNIT/ML VIAL SC SCH ×2 (10:06→21:16)
[2019-08-16] MEDS: LACTOBACILLUS ACIDOPHILUS CAPSULE PO SCH ×3 (10:06→21:14)
[2019-08-16] MEDS: BENZONATATE 100 MG CAP PO PRN ×2 (10:06→21:14)
[2019-08-16 10:43] LABS: BASOPHILS % 0.1 % (0.0-1.0); EOSINOPHILS # (AUTO) 0.3 (0.0-0.4); EOSINOPHILS % 3.4 % (0.0-6.0); HEMOGLOBIN 13.4 g/dL (14.0-18.0); LYMPHOCYTES % 12.5 % (18.0-39.1); MEAN CORPUSCULAR HEMOGLOBIN 28.1 pg (28-32); MEAN CORPUSCULAR HGB CONC 31.9 g/dL (31-35); MEAN CORPUSCULAR VOLUME 88.1 fL (81-99); MONOCYTES # (AUTO) 1.3 (0.2-0.8); MONOCYTES % 15.5 % (4.4-11.3); NEUTROPHILS # (AUTO) 5.5 (2.1-6.9); NEUTROPHILS % 67.9 % (38.7-80.0); PLATELET COUNT 161 x10e3/uL (140-360); RED BLOOD COUNT 4.77 x10e6/uL (4.3-5.7); RED CELL DISTRIBUTION WIDTH 15.2 % (11.7-14.4)
[2019-08-16 11:16] LABS: ANION GAP 11.6 mmol/L (8-16); BLOOD UREA NITROGEN 12 mg/dL (7-26); BUN/CREATININE RATIO 16 (6-25); CALCIUM 8.1 mg/dL (8.4-10.2); CARBON DIOXIDE 24 mmol/L (22-29); CHLORIDE 105 mmol/L (98-107); CREATININE, SERUM 0.75 mg/dL (0.72-1.25); EST GLOMERULAR FILTRATION RATE > 60 ML/MIN (60-); GLUCOSE 88 mg/dL (74-118); POTASSIUM 3.6 mmol/L (3.5-5.1); SODIUM 137 mmol/L (136-145)
[2019-08-16] MEDS: ACETAMINOPHEN 325 MG TAB PO PRN (12:53)
[2019-08-16] MEDS ORDERED: ACETAMINOPHEN 325 MG TAB ONE (12:58)
--- NOTE | 2019-08-16 16:53 | Diagnostic Imaging Report ---
EXAM: CT Chest WITHOUT intravenous contrast 08/16/2019 10:25 AM INDICATION: Cough, shortness of breath COMPARISON: Chest radiograph 08/15/2019 TECHNIQUE: Chest was scanned utilizing a multidetector helical scanner from the lung apex through the level of the adrenal glands without administration of IV contrast. Coronal and sagittal reformations were obtained. Routine protocol was performed. IV CONTRAST: None RADIATION DOSE: Total DLP: 462.0 mGy*cm. Dose modulation, iterative reconstruction, and/or weight based adjustment of the mA/kV was utilized to reduce the radiation dose to as low as reasonably achievable. COMPLICATIONS: None FINDINGS: LINES/ TUBES: None. LUNGS AND AIRWAYS: The central airways are patent. Images of the lungs are limited by extensive respiratory motion artifact. Diffuse smooth interlobular septal thickening consistent with interstitial edema. Diffuse background of predominantly peripheral increased interstitial opacities and lower lobe predominant subpleural cystic changes without honeycombing. PLEURA: Trace bilateral pleural effusion. No pneumothorax. HEART AND MEDIASTINUM: The thyroid gland is normal. No supraclavicular or axillary lymphadenopathy. Scattered enlarged mediastinal lymph nodes, for example a right pretracheal lymph node measuring up to 1.7 x 1.1 cm (series 2 image 41). Mild patchy upper cardiomegaly. No pericardial effusion. Atherosclerotic arterial calcifications involve the coronary arteries, aorta, and proximal great vessels. The main pulmonary artery measures up to 3.1 cm. UPPER ABDOMEN: No acute findings. BONES: No acute osseous injury. No suspicious lytic or blastic lesions. SOFT TISSUES: Unremarkable. IMPRESSION: Evaluation of the lungs limited by extensive respiratory motion artifact. Multichamber cardiomegaly, pulmonary interstitial edema, and trace bilateral pleural effusions with fluid layering along the fissures. Findings of chronic interstitial lung disease in an NSIP pattern. Atherosclerotic arterial calcifications including of the coronary arteries. Signed by: Jackson Rodríguez MD on 08/16/2019 4:51 PM
[2019-08-17] VITALS (18 sets, daily range): BP systolic 82–135; BP diastolic 48–88
[2019-08-17] MEDS: ALBUTEROL/IPRATROPIUM 3 ML NEB NEB SCH ×6 (00:10→19:55)
[2019-08-17] MEDS: CLINDAMYCIN 300MG 50 ML IV SCH ×4 (00:11→17:20)
[2019-08-17] MEDS ORDERED: LEVOFLOXACIN 500MG/D5W 100ML 100 ML IV ONE ×2 (00:44→00:45)
[2019-08-17] MEDS: GUAIFENESIN/CODEINE 10 ML CUP PO PRN (00:50)
[2019-08-17] MEDS ORDERED: ACETAMINOPHEN 325 MG TAB ONE (01:30)
[2019-08-17] MEDS: ACETAMINOPHEN 325 MG TAB PO PRN (01:31)
[2019-08-17 05:11] LABS: BASOPHILS % 0.3 % (0.0-1.0); EOSINOPHILS # (AUTO) 0.2 (0.0-0.4); EOSINOPHILS % 2.8 % (0.0-6.0); HEMATOCRIT 42.7 % (38.2-49.6); HEMOGLOBIN 13.6 g/dL (14.0-18.0); LYMPHOCYTES % 15.4 % (18.0-39.1); MEAN CORPUSCULAR HEMOGLOBIN 27.9 pg (28-32); MEAN CORPUSCULAR HGB CONC 31.9 g/dL (31-35); MEAN CORPUSCULAR VOLUME 87.7 fL (81-99); MONOCYTES % 14.7 % (4.4-11.3); NEUTROPHILS # (AUTO) 4.5 (2.1-6.9); NEUTROPHILS % 66.2 % (38.7-80.0); PLATELET COUNT 169 x10e3/uL (140-360); RED BLOOD COUNT 4.87 x10e6/uL (4.3-5.7)
[2019-08-17 05:30] LABS: ANION GAP 10.6 mmol/L (8-16); BLOOD UREA NITROGEN 13 mg/dL (7-26); BUN/CREATININE RATIO 17 (6-25); CALCIUM 8.2 mg/dL (8.4-10.2); CARBON DIOXIDE 25 mmol/L (22-29); CHLORIDE 107 mmol/L (98-107); CREATININE, SERUM 0.76 mg/dL (0.72-1.25); EST GLOMERULAR FILTRATION RATE > 60 ML/MIN (60-); GLUCOSE 101 mg/dL (74-118); POTASSIUM 3.6 mmol/L (3.5-5.1); SODIUM 139 mmol/L (136-145)
--- NOTE | 2019-08-17 06:26 | Diagnostic Imaging Report ---
EXAMINATION: 1 view chest x-ray COMPARISON: CT chest 08/16/2019, chest x-ray 08/15/2019 INDICATION: ^wheezing ^[id number] ^[id number] DISCUSSION: Frontal view of the chest obtained at 0555 hours. HEART AND MEDIASTINUM: Stable cardiomegaly and enlarged pulmonary arteries. Primary veins are prominent and similar in morphology LINES: None. LUNGS: Diffuse hyperinflation. Stable bibasilar atelectasis. No new airspace opacities PLEURA: No pleural effusion or pneumothorax. BONES AND SOFT TISSUES: No focal osseous lesion. The soft tissues are normal. IMPRESSION: Stable hyperinflation and bibasilar atelectasis. Stable cardiomegaly and vascular congestion. Signed by: Dr. Tae Dueñas MD on 08/17/2019 6:24 AM
[2019-08-17] MEDS: LEVOTHYROXINE SODIUM 50 MCG TAB PO SCH (06:29)
[2019-08-17] MEDS: AZTREONAM 1 GM/NS 50 ML 50 ML IV SCH ×3 (07:44→22:00)
[2019-08-17] MEDS: LEVOFLOXACIN 500MG/D5W 100ML 100 ML IV SCH (08:00)
[2019-08-17] MEDS: LACTOBACILLUS ACIDOPHILUS CAPSULE PO SCH ×3 (08:00→21:00)
[2019-08-17] MEDS: HEPARIN SOD (PORCINE) 5,000 UNIT/ML VIAL SC SCH ×2 (08:02→21:00)
--- NOTE | 2019-08-17 18:29 | Progress Note ---
DATE: 08/17/[address] Culver and the patient of Dr. Billy Mccabe. Today, the patient feels better. Last night when I saw him, he was more tachypneic than he is now, although he still says that he is still a little short of breath. White blood cell count today is 6.7, improving from admission on 08/13 of 7.8. Hemoglobin 13.6, hematocrit is 42.7, platelet count is good at 169,000. His BUN is 13, creatinine 0.7, and had improved since the patient came in with a BUN of 18 and a creatinine of 1.1 on 08/13/2019. Chest x-ray done today shows atelectasis, stable cardiomegaly and vascular congestion and stable hyperinflation, unchanged from previous x-ray of 48 hours ago. The patient is tolerating diet well, urinating, and he is emptying the bladder satisfactorily. Currently, I examined his scrotum, reactive hydrocele on the right. The testicle on the left still somewhat swollen, although the skin is soft and not red on the scrotum. The patient continues to improve slowly, but he is improving and not getting any worse. RECOMMENDATIONS: From the urological standpoint, stay on the antibiotics and we will check him again tomorrow. MD ROSANGELA Mcgregor/ALBERTL /[id number]
[2019-08-17] MEDS ORDERED: LEVOFLOXACIN 500MG/D5W 100ML 100 ML IV SCH (21:00)
[2019-08-18] VITALS (7 sets, daily range): BP systolic 105–146; BP diastolic 65–82
[2019-08-18] MEDS: ALBUTEROL/IPRATROPIUM 3 ML NEB NEB SCH ×2 (03:40→08:35)
--- NOTE | 2019-08-18 04:00 | NUR ---
patient complained of lower abdomen pain, bladder scan was done and patient had more than 400mls retention, Dr. Guilherme Rico was made aware and he ordered catheter placement. It was placed and 500 was emptied on initial placement. Baron placement was done by me and assisted by
[2019-08-18] MEDS: CLINDAMYCIN 300MG 50 ML IV SCH ×4 (05:38→18:38)
[2019-08-18] MEDS: LEVOTHYROXINE SODIUM 50 MCG TAB PO SCH (05:40)
[2019-08-18] MEDS: AZTREONAM 1 GM/NS 50 ML 50 ML IV SCH ×3 (06:04→21:44)
--- NOTE | 2019-08-18 08:20 | Progress Note ---
DATE: HISTORY: I was called in at 3 o'clock in the morning concerning that the patient is having low abdominal discomfort and pain. Ultrasound of the bladder showed over 500 mL of urinary retention and a Baron catheter was ordered. This morning, the patient is doing well, but now in urinary retention, this may be due to medications such as Robitussin with Codeine and albuterol, which could potentially cause urinary retention, although the patient was known to have an enlarged prostate and was carrying high residuals and was going to have a transurethral resection of the prostate on the of this month and now of course in the hospital with lung issues, UTI and urinary retention. I have started the patient back on Flomax and Proscar and we will attempt to give him a voiding trial again in the next 24-48 hours to see if we can get rid of his catheter. MD ROSANGELA Mcgregor/MODL /[id number]
[2019-08-18] MEDS: FINASTERIDE 5 MG TAB PO SCH (09:22)
[2019-08-18] MEDS: LEVOFLOXACIN 500MG/D5W 100ML 100 ML IV SCH (09:22)
[2019-08-18] MEDS: LACTOBACILLUS ACIDOPHILUS CAPSULE PO SCH ×3 (09:22→20:34)
[2019-08-18] MEDS: HEPARIN SOD (PORCINE) 5,000 UNIT/ML VIAL SC SCH (09:24)
[2019-08-18] MEDS ORDERED: METOPROLOL SUCCINATE 25 MG TAB XL ONE (09:31)
[2019-08-18] MEDS ORDERED: METOPROLOL SUCCINATE 25 MG TAB XL PO ONE (10:00)
[2019-08-18] MEDS ORDERED: DIGOXIN INJ 0.25 MG/ML 2 ML AMP IV ONE (10:00)
[2019-08-18] MEDS: BENZONATATE 100 MG CAP PO PRN ×2 (10:28→20:11)
[2019-08-18] MEDS ORDERED: AMIODARONE HCL 900 MG in DEXTROSE 5% 500ML 500 ML IV SCH (10:30)
[2019-08-18 10:55] LABS: CREATINE KINASE 184 IU/L (30-200)
[2019-08-18] MEDS: IPRATROPIUM BROMIDE 0.02% 2.5 ML NEB NEB SCH ×4 (11:20→23:00)
[2019-08-18] MEDS: GUAIFENESIN/CODEINE 10 ML CUP PO PRN (12:59)
[2019-08-18] MEDS: LOPERAMIDE HCL 2 MG CAP PO PRN (12:59)
[2019-08-18] MEDS: AMIODARONE HCL 200 MG TAB PO SCH (13:00)
[2019-08-18] MEDS ORDERED: ACETAMINOPHEN 325 MG TAB ONE (13:06)
--- NOTE | 2019-08-18 15:15 | NUR ---
Nutrition Screen Note RD Recommendation for Physician: - Continue current diet per MD Plan of Care: RD following, monitoring for tolerance and adequacy Nutrition reason for involvement: LOS Primary Diagnose(s): dizziness, UTI, septic shock, weakness PMH: hypothyroidism, enlarged prostate, OA Ht: 68 in Wt: 221 lb BMI: 33.6 kg/m2 IBW: [address] Assessment: (08/18) 74 YOM admitted for UTI and septic shock, seen today for LOS. Pt sleeping on BiPAP at time of visit, at bedside provided hx. Per pt with good po intake currently and VIDEO OPERATOR, noted 75-100% meal intake per chart. Pt's denies wt loss or GI distress. Pt's with no questions or concerns at time of visit. Skin intact. Chart reviewed. Labs and meds reviewed. Will continue to monitor. Current Diet: 2 gm Na Malnutrition Evaluation (08/18/19) The patient does not meet criteria for a specified degree of malnutrition at this time. Will re-evaluate at follow-up as appropriate. Diet Education Needs Assessment: Diet education not indicated. Diet tolerance: tolerating po Nutrition Care Level: low Signed: Parul Ramirez RD, LD, [facility]
[2019-08-18] MEDS ORDERED: AMIODARONE 900MG 500 ML IV SCH (16:31)
--- NOTE | 2019-08-18 18:49 | Diagnostic Imaging Report ---
EXAM: CHEST 2 VIEWS DATE: 08/18/2019 7:00 AM INDICATION: ^cough ^[id number] ^[id number] COMPARISON: Chest x-ray, 08/17/2019 FINDINGS: Lines and tubes: None Cardiac silhouette remains enlarged. Bilateral central pulmonary vascular prominence appears improved since last exam. No peripheral consolidation, large pleural effusion or pneumothorax. Upper abdomen unremarkable. No acute bony abnormality. IMPRESSION: Cardiomegaly with improvement of central pulmonary vascular congestion. Signed by: Dr. Gray Whitley M.D. on 08/18/2019 6:47 PM
--- NOTE | 2019-08-18 19:24 | Diagnostic Imaging Report ---
Ventilation/perfusion lung scan Clinical Information: Atrial fibrillation Comparison: Chest radiograph 08/18/2019 Discussion: Xenon-133 gas 9.4 mCi was administered via inhalation. The patient coughed as he inhaled the radiotracer. No images could be obtained. Perfusion images of the lungs were obtained in multiple projections following intravenous administration of approximately 5.5 mCi of Tc-99m MAA. Distribution of tracer is minimally irregular throughout the lungs. The contours of the lungs are well demarcated. There are no segmental perfusion defects of any size. The cardiomediastinal silhouette is enlarged. Impression: 1. Scan findings represent a VERY LOW probability for acute pulmonary embolic disease based on the PIOPED II criteria. 2. Ventilation imaging would not have altered the probability of PE in this case, however, cannot assess for airway disease without ventilation images. 3. Enlarged cardiac silhouette. Signed by: Dr. Marie Brian M.D. on 08/18/2019 7:22 PM
[2019-08-18] MEDS: TAMSULOSIN HCL 0.4 MG CAP PO SCH (20:34)
[2019-08-18] MEDS: ENOXAPARIN SODIUM INJ 100 MG/ML SYR SC SCH (20:35)
--- NOTE | 2019-08-18 21:58 | Consultation ---
DATE OF CONSULTATION: Cardiology Consult HISTORY OF PRESENT ILLNESS: Mr. Alex Cat is a 74-year-old male with primary history of hypothyroidism, osteoarthritis, enlarged prostate, admitted originally for generalized weakness and left epididymo-orchitis, now in the IMU for sepsis and developed atrial fibrillation with RVR with heart rate to the 140s. The patient reports dizziness and shortness of breath, but denies any chest pain. PAST MEDICAL HISTORY: Enlarged prostate, hypothyroidism, and osteoarthritis. PAST SURGICAL HISTORY: Left foot surgery and hiatal hernia repair. SOCIAL HISTORY: The patient quit smoking 25 years ago. No alcohol or recreational drug use. ALLERGIES: NO KNOWN ALLERGIES. HOME MEDICATIONS: He takes doxazosin, finasteride, levothyroxine, and loperamide p.r.n. for diarrhea. PHYSICAL EXAMINATION: VITAL SIGNS: Temperature is 99.5, pulse is 160, respiratory rate 22, blood pressure is 105/67, pulse ox is 97% on oxygen at 3 L per nasal cannula. GENERAL APPEARANCE: Well developed, well nourished, in no acute respiratory distress. HEENT: Head is normocephalic, atraumatic. Eyes, pupils are equally round and reactive to light and accommodation. Sclerae are nonicteric. Ears normal. Oral cavity is moist. Throat is clear. NECK AND THYROID: Neck is supple. Full range of motion. No lymphadenopathy. SKIN: Warm and dry. No suspicious lesions. HEART: Currently rate regular rate and rhythm. S1 and S2 normal. No murmurs. LUNGS: Clear to auscultation. ABDOMEN: Firm, nontender. Bowel sounds are present. EXTREMITIES: With trace edema to the lower extremities. NEUROLOGIC: Nonfocal. Motor strength in upper and lower extremities. Sensory exam is intact. IMPRESSION AND PLAN: This patient is a 74-year-old male with atrial fibrillation, RVR, converted back to normal sinus rhythm. 1. Continue AV tim blocking agents and antiarrhythmic amiodarone. 2. Anticoagulation with Lovenox. Will need Eliquis or Xarelto for long-term regimen. 3. Echocardiogram pending. 4. Trend cardiac markers and check lipid panel and TSH. We will continue to follow. Thank you for this consultation. Dictated by Jeannette Russell, FERNANDO MD SHUKRI Welch/JEANNE /[id number]
[2019-08-19] VITALS (7 sets, daily range): BP systolic 113–145; BP diastolic 67–98
[2019-08-19] MEDS: CLINDAMYCIN 300MG 50 ML IV SCH ×5 (00:05→23:35)
[2019-08-19] MEDS: IPRATROPIUM BROMIDE 0.02% 2.5 ML NEB NEB SCH ×6 (03:00→23:00)
[2019-08-19] MEDS ORDERED: ACETAMINOPHEN 325 MG TAB ONE (03:33)
[2019-08-19] MEDS: GUAIFENESIN/CODEINE 10 ML CUP PO PRN ×2 (03:44→21:18)
[2019-08-19] MEDS: ACETAMINOPHEN 325 MG TAB PO PRN (03:45)
[2019-08-19] MEDS: AZTREONAM 1 GM/NS 50 ML 50 ML IV SCH ×3 (05:27→21:26)
[2019-08-19 05:59] LABS: CHOL/HDL RATIO 6.3 (3.9-4.7)
[2019-08-19] MEDS: LEVOTHYROXINE SODIUM 50 MCG TAB PO SCH (06:08)
[2019-08-19 06:24] LABS: THYROID STIMULATING HORMONE 3.717 uIU/mL (0.350-4.940)
--- NOTE | 2019-08-19 07:00 | NUR ---
Rvcd patient in report this am. Patient is asleep in bed at this time. No s/s of distress noted. Family at bedside
[2019-08-19] MEDS: METOPROLOL SUCCINATE 25 MG TAB XL PO SCH (08:18)
[2019-08-19] MEDS: FINASTERIDE 5 MG TAB PO SCH (08:18)
[2019-08-19] MEDS: LACTOBACILLUS ACIDOPHILUS CAPSULE PO SCH ×3 (08:18→20:23)
[2019-08-19] MEDS: AMIODARONE HCL 200 MG TAB PO SCH (08:18)
[2019-08-19] MEDS: ENOXAPARIN SODIUM INJ 100 MG/ML SYR SC SCH ×2 (08:18→20:23)
[2019-08-19] MEDS: LEVOFLOXACIN 500MG/D5W 100ML 100 ML IV SCH (08:39)
[2019-08-19] MEDS: BENZONATATE 100 MG CAP PO PRN (12:28)
--- NOTE | 2019-08-19 13:15 | NUR ---
Patient noted to be resting in bed without his oxygen and O2 sats noted at 85%. Replaced oxygen at 2L NC and increased to 93%. Patient stable. No shortness of breath noted
--- NOTE | 2019-08-19 19:53 | NUR ---
patient just had bowel movement , went to bathroom with O2 NC, tolerated well. on bedside, vitals checked, denied any discomfort at this time, will continue to monitor.
[2019-08-19] MEDS: TAMSULOSIN HCL 0.4 MG CAP PO SCH (20:23)
--- NOTE | 2019-08-19 20:53 | Progress Note ---
DATE: 08/19/2019 Today, the patient is somewhat depressed. He is now on more medication. He is now in atrial fibrillation. He has had lab work done. He went to urinary retention, has a Baron. We discussed the future of the Baron since I have been giving him Flomax for the last two nights. I will ask the nurses to give him a voiding trial in the morning. In fact, I talked to the nurse about that today while I visited with the patient. The voiding trial was started in the morning and they will call me with postvoid residuals. I discussed this with the patient. He has agreed. MD ROSANGELA Mcgregor/ALBERTL /[id number]
--- NOTE | 2019-08-19 22:16 | NUR ---
reports given Alison BLANK, patient will be transferred to [facility].
--- NOTE | 2019-08-19 22:55 | NUR ---
PATIENT ARRIVED VIA WHEELCHAIR TO THE UNIT WITH BELONGINGS. AT THE BEDSIDE. PATIENT IN NO PAIN OR DISTRESS. CALL LIGHT WITHIN REACH.
[2019-08-19] MEDS ORDERED: SODIUM CHLORIDE 0.9% 250ML 250 ML ONE (23:29)
[2019-08-20] MEDS: IPRATROPIUM BROMIDE 0.02% 2.5 ML NEB NEB SCH ×6 (03:00→23:00)
[2019-08-20] MEDS: LEVOTHYROXINE SODIUM 50 MCG TAB PO SCH (05:47)
[2019-08-20] MEDS: CLINDAMYCIN 300MG 50 ML IV SCH ×4 (05:47→23:56)
[2019-08-20] MEDS: AZTREONAM 1 GM/NS 50 ML 50 ML IV SCH (05:47)
[2019-08-20] MEDS: GUAIFENESIN/CODEINE 10 ML CUP PO PRN (06:07)
[2019-08-20 06:08] LABS: BASOPHILS % 0.3 % (0.0-1.0); EOSINOPHILS # (AUTO) 0.4 (0.0-0.4); EOSINOPHILS % 4.7 % (0.0-6.0); HEMATOCRIT 45.6 % (38.2-49.6); HEMOGLOBIN 14.3 g/dL (14.0-18.0); LYMPHOCYTES # (AUTO) 1.5 (1.0-3.2); LYMPHOCYTES % 19.7 % (18.0-39.1); MEAN CORPUSCULAR HEMOGLOBIN 27.7 pg (28-32); MEAN CORPUSCULAR HGB CONC 31.4 g/dL (31-35); MEAN CORPUSCULAR VOLUME 88.4 fL (81-99); MONOCYTES # (AUTO) 0.9 (0.2-0.8); NEUTROPHILS # (AUTO) 4.8 (2.1-6.9); NEUTROPHILS % 62.3 % (38.7-80.0); PLATELET COUNT 232 x10e3/uL (140-360); RED BLOOD COUNT 5.16 x10e6/uL (4.3-5.7); RED CELL DISTRIBUTION WIDTH 14.6 % (11.7-14.4)
--- NOTE | 2019-08-20 06:15 | Diagnostic Imaging Report ---
EXAMINATION: CHEST SINGLE (PORTABLE) COMPARISON: Chest x-ray 08/17/2019, chest x-ray 08/15/2019 INDICATION: Central pulmonary congestion ^f/u ^[id number] ^[id number] DISCUSSION: Frontal view of the chest obtained at 0536 hours. HEART AND MEDIASTINUM: Stable cardiomegaly. Pulmonary vasculature is prominent but has improved. LINES: None. LUNGS: Improved bibasilar atelectasis. PLEURA: No pleural effusion or pneumothorax. BONES AND SOFT TISSUES: No focal osseous lesion. The soft tissues are normal. IMPRESSION: Stable cardiomegaly. Improved vascular congestion. Signed by: Dr. Tae Dueñas MD on 08/20/2019 6:11 AM
[2019-08-20 06:24] LABS: ANION GAP 9.8 mmol/L (8-16); BLOOD UREA NITROGEN 15 mg/dL (7-26); BUN/CREATININE RATIO 19 (6-25); CALCIUM 8.6 mg/dL (8.4-10.2); CARBON DIOXIDE 29 mmol/L (22-29); CHLORIDE 102 mmol/L (98-107); CREATININE, SERUM 0.78 mg/dL (0.72-1.25); EST GLOMERULAR FILTRATION RATE > 60 ML/MIN (60-); GLUCOSE 99 mg/dL (74-118); POTASSIUM 3.8 mmol/L (3.5-5.1); SODIUM 137 mmol/L (136-145)
--- NOTE | 2019-08-20 07:24 | NUR ---
CATHERINE IS REMOVED. AT THE BEDSIDE. GAVE BEDSIDE SHIFT REPORT TO ONCOMING NURSE. CALL LIGHT WITHIN REACH. PATIENT IN BED.
[2019-08-20 07:32] VITALS: BP 125/77
[2019-08-20 08:27] VITALS: BP 125/77
--- NOTE | 2019-08-20 08:28 | NUR ---
Patient a/x3, no distress, Baron cath d/c'd this morning by outgoing nurse at 7:15am, patient due to void and will complete PVR, call light within reach, will monitor.
[2019-08-20] MEDS: BENZONATATE 100 MG CAP PO SCH ×4 (08:30→23:56)
[2019-08-20] MEDS: LACTOBACILLUS ACIDOPHILUS CAPSULE PO SCH ×3 (08:58→22:00)
[2019-08-20] MEDS: FINASTERIDE 5 MG TAB PO SCH (08:58)
[2019-08-20] MEDS: AMIODARONE HCL 200 MG TAB PO SCH (08:58)
[2019-08-20] MEDS: LEVOFLOXACIN 500 MG TAB PO SCH (08:58)
[2019-08-20] MEDS: METOPROLOL SUCCINATE 25 MG TAB XL PO SCH (08:59)
--- NOTE | 2019-08-20 11:34 | NUR ---
Patient voided after d/c of Baron cath and PVR at 200cc.
[2019-08-20 11:52] VITALS: BP 127/75
--- NOTE | 2019-08-20 13:00 | NUR ---
Second PVR 135cc
--- NOTE | 2019-08-20 15:07 | NUR ---
O2 eval done and 93% RA, patient however when sleeping O2Sats drop to 85%RA, needed to reapply O2 NC.
[2019-08-20 16:00] VITALS: BP 129/63
--- NOTE | 2019-08-20 17:57 | NUR ---
Patient a/ox3, OOB and ambulated in room, up on chair and had dinner, tolerated well, some SOB but no distress, call light within reach, will monitor.
[2019-08-20] MEDS ORDERED: APIXABAN 5 MG TABLET PO SCH (18:00)
[2019-08-20 20:00] VITALS: BP 128/65
[2019-08-20] MEDS: TAMSULOSIN HCL 0.4 MG CAP PO SCH (22:00)
[2019-08-21] VITALS (8 sets, daily range): BP systolic 119–160; BP diastolic 65–85
--- NOTE | 2019-08-21 02:08 | NUR ---
SPOKE TO DR. DURAND AT THIS TIME REGARDING PT C/O BLADDER PAIN. INFORMED MD OF POST VOID RESIDUAL OF 363ML. SAID TO INSERT CATHERINE CATH 18G. Addendum: 08/21/19 at 0621 by Kunal Amado RN CATHERINE CATH 18F
[2019-08-21] MEDS ORDERED: ACETAMINOPHEN 325 MG TAB PO PRN (02:15)
--- NOTE | 2019-08-21 02:50 | NUR ---
CATHERINE CATHETER INSERTED USING STERILE TECHNIQUE. CRESCENCIO RN AT BEDSIDE. 400ML OF BRIGHT RED URINE NOTED ON CATHERINE BAG.
[2019-08-21] MEDS: IPRATROPIUM BROMIDE 0.02% 2.5 ML NEB NEB SCH ×6 (04:05→23:40)
[2019-08-21] MEDS: LEVOTHYROXINE SODIUM 50 MCG TAB PO SCH (05:47)
[2019-08-21] MEDS: BENZONATATE 100 MG CAP PO SCH ×4 (05:47→23:50)
[2019-08-21] MEDS: CLINDAMYCIN 300MG 50 ML IV SCH ×4 (05:47→23:50)
--- NOTE | 2019-08-21 07:00 | NUR ---
Received patient sitting on the bed, family at bedside. Respiration even and unlabored without SOB. Denies pain. Call light in reach. Addendum: 08/21/19 at 1036 by Nery Gutiérrez RN 18 F Indwelling urinary catheter intact, in placed, draining reddish-colored urine to bag.
[2019-08-21] MEDS: AMIODARONE HCL 200 MG TAB PO SCH (08:51)
[2019-08-21] MEDS: METOPROLOL SUCCINATE 25 MG TAB XL PO SCH (08:52)
[2019-08-21] MEDS: LEVOFLOXACIN 500 MG TAB PO SCH (08:52)
[2019-08-21] MEDS: FINASTERIDE 5 MG TAB PO SCH (08:52)
[2019-08-21] MEDS: LACTOBACILLUS ACIDOPHILUS CAPSULE PO SCH ×3 (08:52→20:37)
[2019-08-21] MEDS: ACETAMINOPHEN 325 MG TAB PO PRN (18:57)
--- NOTE | 2019-08-21 19:08 | NUR ---
Report given to ribbon sweatband operator. Respiration even and unlabored without SOB. Call light in reach.
[2019-08-21] MEDS: TAMSULOSIN HCL 0.4 MG CAP PO SCH (20:37)
[2019-08-22] VITALS (8 sets, daily range): BP systolic 130–155; BP diastolic 77–89
[2019-08-22] MEDS: IPRATROPIUM BROMIDE 0.02% 2.5 ML NEB NEB SCH ×5 (00:30→20:30)
--- NOTE | 2019-08-22 04:47 | NUR ---
CATHETER CARE DONE PER ELEANOR PCT
[2019-08-22] MEDS: CLINDAMYCIN 300MG 50 ML IV SCH (05:26)
[2019-08-22] MEDS: LEVOTHYROXINE SODIUM 50 MCG TAB PO SCH (05:27)
[2019-08-22] MEDS: BENZONATATE 100 MG CAP PO SCH (05:27)
[2019-08-22 05:45] LABS: BASOPHILS % 0.3 % (0.0-1.0); EOSINOPHILS # (AUTO) 0.4 (0.0-0.4); EOSINOPHILS % 5.7 % (0.0-6.0); HEMATOCRIT 46.1 % (38.2-49.6); HEMOGLOBIN 14.7 g/dL (14.0-18.0); LYMPHOCYTES # (AUTO) 1.8 (1.0-3.2); LYMPHOCYTES % 22.5 % (18.0-39.1); MEAN CORPUSCULAR HEMOGLOBIN 28.1 pg (28-32); MEAN CORPUSCULAR HGB CONC 31.9 g/dL (31-35); MEAN CORPUSCULAR VOLUME 88.1 fL (81-99); MONOCYTES # (AUTO) 0.8 (0.2-0.8); MONOCYTES % 10.2 % (4.4-11.3); NEUTROPHILS # (AUTO) 4.7 (2.1-6.9); NEUTROPHILS % 60.3 % (38.7-80.0); PLATELET COUNT 277 x10e3/uL (140-360); RED BLOOD COUNT 5.23 x10e6/uL (4.3-5.7); RED CELL DISTRIBUTION WIDTH 14.6 % (11.7-14.4)
[2019-08-22 06:05] LABS: ANION GAP 10.1 mmol/L (8-16); BLOOD UREA NITROGEN 14 mg/dL (7-26); BUN/CREATININE RATIO 16 (6-25); CALCIUM 8.9 mg/dL (8.4-10.2); CARBON DIOXIDE 28 mmol/L (22-29); CHLORIDE 104 mmol/L (98-107); CREATININE, SERUM 0.87 mg/dL (0.72-1.25); EST GLOMERULAR FILTRATION RATE > 60 ML/MIN (60-); GLUCOSE 95 mg/dL (74-118); POTASSIUM 4.1 mmol/L (3.5-5.1); SODIUM 138 mmol/L (136-145)
--- NOTE | 2019-08-22 07:03 | NUR ---
Received patient lying on the bed with eyes closed, family at bedside. Respiration even and unlabored without SOB. Denies pain. Call light in reach.
[2019-08-22] MEDS: FINASTERIDE 5 MG TAB PO SCH (08:26)
[2019-08-22] MEDS: LACTOBACILLUS ACIDOPHILUS CAPSULE PO SCH ×3 (08:26→21:09)
[2019-08-22] MEDS: METOPROLOL SUCCINATE 25 MG TAB XL PO SCH (08:26)
[2019-08-22] MEDS: AMIODARONE HCL 200 MG TAB PO SCH (08:26)
[2019-08-22] MEDS: LEVOFLOXACIN 500 MG TAB PO SCH (08:26)
--- NOTE | 2019-08-22 09:50 | NUR ---
Met with pt and his of 51 years. speaks [place] Island[place]. Discussed dc plan for home health due to going home with vaca catheter. They agree. Chose [facility] and signed choice letter. Choice letter placed in front of chart. Faxed order and clinical to [facility], as pt lives in [place]. [facility] office: [phone] fax: [phone]
--- NOTE | 2019-08-22 12:45 | NUR ---
Visit made by the Spiritual Care Department Pastoral Visitor, Bairon Hines. PV provided pastoral presence, hospitality, and supportive listening. Pastoral Visitor informed pt/family of the scope of [facility] and availability. JADEN KATZ Services Advisor Spiritual Care Department O: [phone] Pager: [phone] ([phone] number calling from)
--- NOTE | 2019-08-22 19:05 | NUR ---
Report given to patient. Respiration even and unlabored without SOB. Call light in reach.
[2019-08-22] MEDS: TAMSULOSIN HCL 0.4 MG CAP PO SCH (21:09)
[2019-08-23] VITALS (8 sets, daily range): BP systolic 105–130; BP diastolic 60–88
[2019-08-23] MEDS: IPRATROPIUM BROMIDE 0.02% 2.5 ML NEB NEB SCH ×7 (00:45→23:37)
--- NOTE | 2019-08-23 02:22 | NUR ---
CATHERINE CATH CARE PROVIDED PER EVANGELISTA PCT
[2019-08-23] MEDS: LEVOTHYROXINE SODIUM 50 MCG TAB PO SCH (06:14)
[2019-08-23] MEDS: ACETAMINOPHEN 325 MG TAB PO PRN (06:15)
[2019-08-23] MEDS: AMIODARONE HCL 200 MG TAB PO SCH (09:04)
[2019-08-23] MEDS: LACTOBACILLUS ACIDOPHILUS CAPSULE PO SCH ×3 (09:04→21:06)
[2019-08-23] MEDS: LEVOFLOXACIN 500 MG TAB PO SCH (09:04)
[2019-08-23] MEDS: FINASTERIDE 5 MG TAB PO SCH (09:04)
[2019-08-23] MEDS: METOPROLOL SUCCINATE 25 MG TAB XL PO SCH (09:05)
[2019-08-23] MEDS ORDERED: ONDANSETRON HCL 4 MG ORAL DISINTEGRATING TAB PO PRN (11:30)
--- NOTE | 2019-08-23 13:34 | NUR ---
REC'D CALL FROM [facility] IN [place] WHO STATES THEY ARE UNABLE TO "SAFELY STAFF" THIS PT D/W NURSE ARLINE WHO STATES PLAN IS TO DC CATHERINE CATH IN AM AND DC HOME HOME HEALTH WAS ONLY FOR CATHERINE CARE SO WILL NOT NEED HOME HEALTH
--- NOTE | 2019-08-23 19:13 | NUR ---
Received bedside report from day nurse. Patient resting in bed, no s/s of distress or c/o pain at this time. All safety measures in place. Family at bedside. Will continue to monitor.
--- NOTE | 2019-08-23 20:12 | Progress Note ---
DATE: 08/23/2019 SUBJECTIVE: Today, the patient is breathing much better. Urine is clear. He has developed atrial fibrillation and has been treated for that. I discussed with the patient the fact that he had been in urinary retention and since he came to the hospital, we have given him three voiding trials. He has failed every single one of them, but now he is breathing better, not taking nebulizer any longer. I have discussed with the patient that I would like to give him a voiding trial. I told him that I would give the order to take out the catheter at 5 in the morning on 08/24/2019, so he could go home. We will see him and check him in the afternoon in the office. I think that at home he might do better. He is on Flomax and will continue on taking Flomax. I discussed that with the patient and the who was present. I have sent Dr. Andrade a text note explaining my plan. He said he was agreeable with that. Therefore, the patient will be going home on the without a catheter and I will see him in the office in the afternoon of the to check and to make sure the patient is able to urinate. MD ROSANGELA Mcgregor/JEANNE /[id number]
[2019-08-23] MEDS: TAMSULOSIN HCL 0.4 MG CAP PO SCH (21:06)
[2019-08-24] VITALS: BP 121/78
[2019-08-24] MEDS: ACETAMINOPHEN 325 MG TAB PO PRN (00:30)
[2019-08-24] MEDS: IPRATROPIUM BROMIDE 0.02% 2.5 ML NEB NEB SCH ×2 (03:00→07:07)
[2019-08-24 04:00] VITALS: BP 106/76
[2019-08-24] MEDS: LEVOTHYROXINE SODIUM 50 MCG TAB PO SCH (05:36)
--- NOTE | 2019-08-24 05:38 | NUR ---
Baron DC'd as ordered. Balloon and catheter tip intact. Patient due to void. Urinal provided. All safety measures in place. Family at bedside. Will continue to monitor.
--- NOTE | 2019-08-24 06:53 | NUR ---
Patient voided 50 ml via urinal. Urine light tabatha, clear, normal odor.
--- NOTE | 2019-08-24 06:57 | NUR ---
Bedside report given to day nurse. Patient awake and resting in bed, no s/s of distress or c/o pain at this time. All safety measures in place. Family at bedside.
--- NOTE | 2019-08-24 07:28 | NUR ---
Pt received in bed. Pt is aox4 and able to verbalize needs. Baron was discontinued at 0535 this am and pt has already voided twice. Urine is clear and light tabatha. Pt denies any pain at this time.
[2019-08-24 08:00] VITALS: BP 145/65
[2019-08-24 08:14] VITALS: BP 145/65
[2019-08-24] MEDS: FINASTERIDE 5 MG TAB PO SCH (08:35)
[2019-08-24] MEDS: LACTOBACILLUS ACIDOPHILUS CAPSULE PO SCH (08:35)
[2019-08-24] MEDS: AMIODARONE HCL 200 MG TAB PO SCH (08:35)
[2019-08-24] MEDS: LEVOFLOXACIN 500 MG TAB PO SCH (08:35)
[2019-08-24] MEDS: METOPROLOL SUCCINATE 25 MG TAB XL PO SCH (08:36)
--- NOTE | 2019-08-24 09:00 | NUR ---
IMM letter delivered and explained to pt and Jackie at bedside. They verbalized understanding. Pt is ready to go home. Pt's signed for him. Signed copy placed in chart. Copy to pt's .
--- NOTE | 2019-08-24 10:00 | NUR ---
Pt discharged home at this time. Pt was given prescriptions for medications and was educated on new medications, he verbalized understanding of new medications. Pt and family verbalized understanding of all discharge instructions and follow up appointments. Pt having no difficulty voiding at time of discharge.
--- NOTE | 2019-08-24 21:34 | Discharge Summary ---
PRIMARY CARE PHYSICIAN: Dr. Billy Mccabe. CONSULTANTS: 1. Trupti Culver MD. 2. Aramis Vanegas MD. 3. Neil Gavin MD. FINAL DIAGNOSES: 1. Escherichia coli sepsis associated with urinary tract infection, shock, and urinary retention. Baron catheter placed and removed. 2. Acute congestive heart failure secondary to [id number] diastolic dysfunction congestive heart failure. 3. Chronic interstitial lung disease finding. 4. Status post pneumonia. 5. Paroxysmal atrial fibrillation, now in normal sinus rhythm. 6. Hematuria, resolved. SUMMARY: The patient is a 74-year-old male, patient of Dr. Billy Mccabe and Dr. Aramis Vanegas, came into the hospital with increasing dizziness, hypotensive, left epididymitis, orchitis infection, but turned out to be with urinary tract infection, became septic with shock. In the ICU, on pressor support and IV fluid support. The patient was in respiratory insufficiency secondary to interstitial lung disease, but also atypical pneumonia. The patient was quite ill, was admitted to the ICU. He was in the ICU and subsequently improving with antibiotics and supportive measure and transferred out of the ICU to the medical floor. The patient had multiple trial of the Baron, discontinued and replacement and now discontinued again. For the past 24 to 40 hours, the patient is able to urinate. There was no bloody urine. The patient is stable. At this time, he is stable. He has been cleared by all the specialists for discharge home. He will be on Eliquis in a few days. The patient will resume his home medications, which including doxazosin, finasteride, levothyroxine. New prescription is Eliquis 5 mg twice a day. It was started approximately 2 days. Amiodarone 200 mg daily, Levaquin 250 mg daily for 7 days, Lopressor 25 mg b.i.d., Combivent HFA 2 puffs q.4 p.r.n., Tessalon Perles 100 mg q.6 p.r.n., and Flomax 0.4 mg q.p.m. Again for the Eliquis, the patient will start on August 27, 2019. Discussed with the patient at length. The patient is to follow up with Dr. Vanegas with any urinary problem. Discussed with the patient's spouse. Follow up with Dr. Neil Gavin within a week and follow up with his family physician, Dr. Billy Mccabe within a week. The patient is stable discharged home today as planned. MD MARYANN Miranda/JEANNE /[id number]
== END 2019-08-24 10:00 | disposition home or self-care (01) | DRG 871 ==
LOC: ER 18:57 → ERHOLD 23:00 → ICU 23:50 → ER 23:51 → IMCU 08-17 13:27 → MED/SURG 08-19 22:43
PROVIDERS: ADMIT Internal Medicine; ATTEND Internal Medicine
PROC: 5A09357 Assistance with Respiratory Ventilation, Less than 24 Consecutive Hours, Continuous Positive Airway Pressure (ICD-10-PCS; principal; 2019-08-14)
DX: A41.51 Sepsis due to Escherichia coli [E. coli] (principal); R65.21 Severe sepsis with septic shock; J18.9 Pneumonia, unspecified organism; I50.33 Acute on chronic diastolic (congestive) heart failure; N30.01 Acute cystitis with hematuria; N13.8 Other obstructive and reflux uropathy; J44.1 Chronic obstructive pulmonary disease with (acute) exacerbation; N45.3 Epididymo-orchitis; E03.9 Hypothyroidism, unspecified; Z87.440 Personal history of urinary (tract) infections; Z82.49 Family history of ischemic heart disease and other diseases of the circulatory system; W01.0XXA Fall on same level from slipping, tripping and stumbling without subsequent striking against object, initial encounter; Y93.89 Activity, other specified; Y92.019 Unspecified place in single-family (private) house as the place of occurrence of the external cause; Z80.0 Family history of malignant neoplasm of digestive organs; Z87.891 Personal history of nicotine dependence; N40.1 Benign prostatic hyperplasia with lower urinary tract symptoms; I48.0 Paroxysmal atrial fibrillation; R06.89 Other abnormalities of breathing; R33.8 Other retention of urine; T40.2X5A Adverse effect of other opioids, initial encounter; T48.6X5A Adverse effect of antiasthmatics, initial encounter; Y92.230 Patient room in hospital as the place of occurrence of the external cause; F32.9 Major depressive disorder, single episode, unspecified
CPT/HCPCS: 36415; 36600; 70450; 71045; 71046; 71250; 72125; 76870; 78582; 80048; 80053; 80061; 81001; 82550; 82553; 82805; 82948; 83605; 84443; 84484; 85025; 85610; 85730; 87040; 87070; 87086; 87186; 87205; 87400; 93005; 93306; 93976; 94640; 94660; 97139; 99285; A9540; A9558; J0692; J1160; J1644; J1650; J1956; J7030; J7050; J7060

== ENCOUNTER 2020-08-21 17:09 | Inpatient (IN) | payer MEDICARE, OTHER ==
[~2020-08-21] VITALS: Ht 172.7 cm; Wt 101.2 kg
[~2020-08-21 17:09] MED LIST changes: +LOPERAMIDE2 MG PO
[2020-08-21] MEDS ORDERED: DEXAMETHASONE SOD PHOS 10 MG/1 ML VIAL IV STA (17:24)
[2020-08-21] MEDS ORDERED: ASPIRIN 81 MG CHEW TAB PO ONE (17:30)
[2020-08-21 17:44] LABS: BASOPHILS # (AUTO) 0.1 (0.0-0.1); BASOPHILS % 0.5 % (0.0-1.0); EOSINOPHILS # (AUTO) 0.1 (0.0-0.4); EOSINOPHILS % 0.3 % (0.0-6.0); HEMATOCRIT 48.9 % (38.2-49.6); HEMOGLOBIN 15.5 g/dL (14.0-18.0); LYMPHOCYTES # (AUTO) 0.9 (1.0-3.2); LYMPHOCYTES % 4.2 % (18.0-39.1); MEAN CORPUSCULAR HEMOGLOBIN 28.7 pg (28-32); MEAN CORPUSCULAR HGB CONC 31.7 g/dL (31-35); MEAN CORPUSCULAR VOLUME 90.6 fL (81-99); MONOCYTES # (AUTO) 1.5 (0.2-0.8); MONOCYTES % 7.4 % (4.4-11.3); NEUTROPHILS # (AUTO) 17.6 (2.1-6.9); NEUTROPHILS % 86.4 % (38.7-80.0); PLATELET COUNT 177 x10e3/uL (140-360); RED CELL DISTRIBUTION WIDTH 14.7 % (11.7-14.4)
[2020-08-21] MEDS ORDERED: SODIUM CHLORIDE 0.9% 1000ML 1,000 ML IV STA (17:50)
[2020-08-21] MEDS: PIPERACILLIN/TAZOBAC 3.375 GM in SODIUM CHLORIDE 0.9% 50ML 50 ML IV SCH (17:50)
[2020-08-21] MEDS ORDERED: SODIUM CHLORIDE 0.9% 1000ML 1,000 ML ONE (18:00)
[2020-08-21 18:03] LABS: ALANINE AMINOTRANSFERASE 19 IU/L (0-55); ALBUMIN 3.2 g/dL (3.5-5.0); ALBUMIN/GLOBULIN RATIO 0.9 (0.8-2.0); ALKALINE PHOSPHATASE 67 IU/L (40-150); ANION GAP 14.2 mmol/L (8-16); BLOOD UREA NITROGEN 17 mg/dL (7-26); BUN/CREATININE RATIO 15 (6-25); CALCIUM 8.7 mg/dL (8.4-10.2); CARBON DIOXIDE 22 mmol/L (22-29); CHLORIDE 102 mmol/L (98-107); CREATINE KINASE 92 IU/L (30-200); EST GLOMERULAR FILTRATION RATE > 60 ML/MIN (60-); GLUCOSE 113 mg/dL (74-118); POTASSIUM 4.2 mmol/L (3.5-5.1); SODIUM 134 mmol/L (136-145)
[2020-08-21 18:07] LABS: B-TYPE NATRIURETIC PEPTIDE2 258.2 pg/mL (0-100)
[2020-08-21] MEDS ORDERED: IOPAMIDOL 370 MG/ML 200 ML INFUS..BTL INJ ONE (19:20)
[2020-08-21] MEDS ORDERED: SODIUM CHLORIDE 0.9% 50ML 50 ML ONE (19:20)
[2020-08-21 19:27] LABS: CLARITY,URINE SL CLOUDY (CLEAR); COLOR,URINE STRAW (YELLOW); KETONES,URINE NEGATIVE (NEGATIVE); LEUKOCYTE ESTERASE ,URINE TRACE (NEGATIVE); NITRITE,URINE POSITIVE (NEGATIVE); PROTEIN,URINE DIPSTICK NEGATIVE (NEGATIVE); URINE UROBILINOGEN 0.2 mg/dL (0.2 - 1)
[2020-08-21 19:38] LABS: BACTERIA,URINE FEW /HPF; WBC,URINE (MAN) 0-5 /HPF (0-5)
[2020-08-21] MEDS ORDERED: ONDANSETRON HCL INJ 2MG/ML 2ML 2 MG/ML VIAL IV PRN ×2 (20:15→23:15)
[2020-08-21] MEDS ORDERED: MORPHINE SULFATE INJ 4 MG/ML INJ 1ML IV PRN (20:30)
[2020-08-21 22:00] VITALS: BP 110/60
[2020-08-21 22:15] VITALS: BP 110/60
[2020-08-21 22:21] LABS: ABG HCO3 24 mmol/L (22-26); ABG PCO2 37 mmHg (35-45); ABG PH 7.42 (7.35-7.45); ABG PO2 75 mmHg (80-105); ABG TCO2 25
[2020-08-21] MEDS ORDERED: FUROSEMIDE INJ 10 MG/ML 4 ML VIAL IV ONE (22:30)
[2020-08-22] VITALS (8 sets, daily range): BP systolic 100–122; BP diastolic 55–78
[2020-08-22] MEDS ORDERED: SODIUM CHLORIDE 0.9% 50ML 50 ML ONE ×2 (00:11→04:48)
[2020-08-22] MEDS ORDERED: PIPERACILLIN/TAZOBAC 3.375 GM VIAL ONE ×5 (00:11→23:52)
[2020-08-22] MEDS: PIPERACILLIN/TAZOBAC 3.375 GM in SODIUM CHLORIDE 0.9% 50ML 50 ML IV SCH ×4 (00:45→17:35)
[2020-08-22] MEDS ORDERED: SODIUM CHLORIDE 0.9% 250ML 250 ML ONE (01:36)
[2020-08-22] MEDS ORDERED: GUAIFENESIN 200 MG/10 ML UDC PO PRN (01:45)
[2020-08-22] MEDS ORDERED: VANCOMYCIN 1GM/NS 250 ML 250 ML IV ONE ×2 (01:45→15:00)
[2020-08-22] MEDS ORDERED: MAGNESIUM/ALUMINUM/SIMETHICONE 30 ML UDC PO PRN (01:45)
[2020-08-22] MEDS: AZITHROMYCIN 500MG/NS 250 ML 250 ML IV SCH (02:26)
[2020-08-22 05:06] LABS: BASOPHILS % 0.3 % (0.0-1.0); EOSINOPHILS % 0.1 % (0.0-6.0); HEMATOCRIT 48.3 % (38.2-49.6); HEMOGLOBIN 15.3 g/dL (14.0-18.0); LYMPHOCYTES # (AUTO) 1.3 (1.0-3.2); LYMPHOCYTES % 8.5 % (18.0-39.1); MEAN CORPUSCULAR HEMOGLOBIN 29.4 pg (28-32); MEAN CORPUSCULAR HGB CONC 31.7 g/dL (31-35); MEAN CORPUSCULAR VOLUME 92.7 fL (81-99); MONOCYTES # (AUTO) 0.5 (0.2-0.8); MONOCYTES % 3.2 % (4.4-11.3); NEUTROPHILS # (AUTO) 13.7 (2.1-6.9); NEUTROPHILS % 87.3 % (38.7-80.0); PLATELET COUNT 168 x10e3/uL (140-360); RED BLOOD COUNT 5.21 x10e6/uL (4.3-5.7); RED CELL DISTRIBUTION WIDTH 14.6 % (11.7-14.4)
[2020-08-22 05:32] LABS: ALANINE AMINOTRANSFERASE 16 IU/L (0-55); ALBUMIN 3.1 g/dL (3.5-5.0); ALBUMIN/GLOBULIN RATIO 0.9 (0.8-2.0); ALKALINE PHOSPHATASE 63 IU/L (40-150); ANION GAP 14.1 mmol/L (8-16); BLOOD UREA NITROGEN 18 mg/dL (7-26); BUN/CREATININE RATIO 18 (6-25); CALCIUM 8.9 mg/dL (8.4-10.2); CARBON DIOXIDE 25 mmol/L (22-29); CHLORIDE 105 mmol/L (98-107); CREATININE, SERUM 1.01 mg/dL (0.72-1.25); EST GLOMERULAR FILTRATION RATE > 60 ML/MIN (60-); GLUCOSE 146 mg/dL (74-118); POTASSIUM 4.1 mmol/L (3.5-5.1); SODIUM 140 mmol/L (136-145)
[2020-08-22] MEDS: LEVOTHYROXINE SODIUM 50 MCG TAB PO SCH (06:33)
[2020-08-22 06:47] LABS: THYROID STIMULATING HORMONE 0.903 uIU/mL (0.350-4.940)
[2020-08-22] MEDS: FINASTERIDE 5 MG TAB PO SCH (09:10)
[2020-08-22] MEDS: DOXAZOSIN MESYLATE 2 MG TAB PO SCH (09:10)
[2020-08-22 13:08] LABS: CREATINE KINASE MB 1.2 ng/mL (0-5.0)
[2020-08-22] MEDS: ENOXAPARIN SOD INJ 40 MG/0.4 ML SYR SC SCH (16:20)
[2020-08-22] MEDS: METOPROLOL TARTRATE 25 MG TAB PO SCH (16:43)
[2020-08-23] VITALS (8 sets, daily range): BP systolic 98–118; BP diastolic 59–77
[2020-08-23] MEDS: PIPERACILLIN/TAZOBAC 3.375 GM in SODIUM CHLORIDE 0.9% 50ML 50 ML IV SCH ×4 (00:40→17:26)
[2020-08-23] MEDS: AZITHROMYCIN 500MG/NS 250 ML 250 ML IV SCH (04:06)
[2020-08-23] MEDS ORDERED: SODIUM CHLORIDE 0.9% 50ML 50 ML ONE ×4 (04:17→23:23)
[2020-08-23] MEDS ORDERED: PIPERACILLIN/TAZOBAC 3.375 GM VIAL ONE ×4 (04:17→23:22)
[2020-08-23 05:20] LABS: BASOPHILS % 0.3 % (0.0-1.0); EOSINOPHILS # (AUTO) 0.1 (0.0-0.4); HEMATOCRIT 45.1 % (38.2-49.6); HEMOGLOBIN 14.4 g/dL (14.0-18.0); LYMPHOCYTES % 14.3 % (18.0-39.1); MEAN CORPUSCULAR HEMOGLOBIN 29.2 pg (28-32); MEAN CORPUSCULAR HGB CONC 31.9 g/dL (31-35); MEAN CORPUSCULAR VOLUME 91.5 fL (81-99); MONOCYTES # (AUTO) 1.4 (0.2-0.8); MONOCYTES % 9.7 % (4.4-11.3); NEUTROPHILS # (AUTO) 10.4 (2.1-6.9); NEUTROPHILS % 73.8 % (38.7-80.0); PLATELET COUNT 158 x10e3/uL (140-360); RED BLOOD COUNT 4.93 x10e6/uL (4.3-5.7); RED CELL DISTRIBUTION WIDTH 14.7 % (11.7-14.4)
[2020-08-23 05:50] LABS: ALANINE AMINOTRANSFERASE 10 IU/L (0-55); ALBUMIN 2.7 g/dL (3.5-5.0); ALBUMIN/GLOBULIN RATIO 0.8 (0.8-2.0); ALKALINE PHOSPHATASE 51 IU/L (40-150); ANION GAP 11.8 mmol/L (8-16); BLOOD UREA NITROGEN 25 mg/dL (7-26); BUN/CREATININE RATIO 29 (6-25); CALCIUM 8.4 mg/dL (8.4-10.2); CARBON DIOXIDE 25 mmol/L (22-29); CHLORIDE 108 mmol/L (98-107); CHOL/HDL RATIO 5.5 (3.9-4.7); CHOLESTEROL 171 MD/DL (0-199); CREATININE, SERUM 0.86 mg/dL (0.72-1.25); EST GLOMERULAR FILTRATION RATE > 60 ML/MIN (60-); GLUCOSE 109 mg/dL (74-118); HDL CHOLESTEROL 31 MG/DL (40-60); LDL CHOLESTEROL 94 MG/DL (60-130); POTASSIUM 3.8 mmol/L (3.5-5.1); SODIUM 141 mmol/L (136-145); TRIGLYCERIDES 232 MG/DL (0-149)
[2020-08-23 06:09] LABS: THYROID STIMULATING HORMONE 3.456 uIU/mL (0.350-4.940)
[2020-08-23] MEDS: LEVOTHYROXINE SODIUM 50 MCG TAB PO SCH (06:37)
[2020-08-23] MEDS: FINASTERIDE 5 MG TAB PO SCH (08:24)
[2020-08-23] MEDS: ACETAMINOPHEN 325 MG TAB PO PRN ×2 (08:34→17:38)
[2020-08-23] MEDS: METOPROLOL TARTRATE 25 MG TAB PO SCH ×2 (11:00→17:25)
[2020-08-23] MEDS: DOXAZOSIN MESYLATE 2 MG TAB PO SCH (11:00)
[2020-08-23] MEDS ORDERED: AUGMENTIN 875-1 EACH PO (14:26)
[2020-08-23] MEDS: ENOXAPARIN SOD INJ 40 MG/0.4 ML SYR SC SCH (17:26)
[2020-08-24 00:59] VITALS: BP 120/61
[2020-08-24] MEDS: ACETAMINOPHEN 325 MG TAB PO PRN (01:33)
[2020-08-24] MEDS: AZITHROMYCIN 500MG/NS 250 ML 250 ML IV SCH (01:33)
[2020-08-24 05:04] VITALS: BP 116/82
[2020-08-24] MEDS ORDERED: PIPERACILLIN/TAZOBAC 3.375 GM VIAL ONE (05:05)
[2020-08-24] MEDS ORDERED: SODIUM CHLORIDE 0.9% 50ML 50 ML ONE (05:05)
[2020-08-24 05:07] LABS: BASOPHILS # (AUTO) 0.1 (0.0-0.1); BASOPHILS % 0.5 % (0.0-1.0); EOSINOPHILS # (AUTO) 0.3 (0.0-0.4); EOSINOPHILS % 3.3 % (0.0-6.0); HEMATOCRIT 43.7 % (38.2-49.6); HEMOGLOBIN 13.9 g/dL (14.0-18.0); LYMPHOCYTES # (AUTO) 2.2 (1.0-3.2); LYMPHOCYTES % 22.1 % (18.0-39.1); MEAN CORPUSCULAR HEMOGLOBIN 29.1 pg (28-32); MEAN CORPUSCULAR HGB CONC 31.8 g/dL (31-35); MEAN CORPUSCULAR VOLUME 91.4 fL (81-99); MONOCYTES # (AUTO) 1.1 (0.2-0.8); MONOCYTES % 10.8 % (4.4-11.3); NEUTROPHILS # (AUTO) 6.1 (2.1-6.9); NEUTROPHILS % 62.2 % (38.7-80.0); PLATELET COUNT 151 x10e3/uL (140-360); RED BLOOD COUNT 4.78 x10e6/uL (4.3-5.7); RED CELL DISTRIBUTION WIDTH 14.6 % (11.7-14.4)
[2020-08-24] MEDS: LEVOTHYROXINE SODIUM 50 MCG TAB PO SCH (05:30)
[2020-08-24] MEDS: PIPERACILLIN/TAZOBAC 3.375 GM in SODIUM CHLORIDE 0.9% 50ML 50 ML IV SCH ×3 (05:30)
[2020-08-24 07:51] VITALS: BP 126/83
[2020-08-24 08:01] VITALS: BP 126/83
[2020-08-24] MEDS: FINASTERIDE 5 MG TAB PO SCH (08:25)
[2020-08-24] MEDS: DOXAZOSIN MESYLATE 2 MG TAB PO SCH (08:25)
[2020-08-24] MEDS: METOPROLOL TARTRATE 25 MG TAB PO SCH (08:25)
[2020-08-24] MEDS ORDERED: ASPIRIN 81 MG ENTERIC COATED PO SCH (10:00)
[2020-08-24 11:21] VITALS: BP 131/78
[2020-08-24] MEDS ORDERED: ONDANSETRON HCL 4 MG ORAL DISINTEGRATING TAB PO PRN (13:15)
[2020-08-25] MEDS ORDERED: AZITHROMYCIN 250 MG TAB PO SCH (01:45)
== END 2020-08-24 13:50 | disposition home or self-care (01) | DRG 871 ==
LOC: ER 18:09 → ERHOLD 20:48 → MED/SURG2 21:30
PROVIDERS: ADMIT Internal Medicine; ATTEND Internal Medicine
DX: A41.9 Sepsis, unspecified organism (principal); J18.9 Pneumonia, unspecified organism; I50.33 Acute on chronic diastolic (congestive) heart failure; E87.2 Acidosis; E87.1 Hypo-osmolality and hyponatremia; N39.0 Urinary tract infection, site not specified; E88.09 Other disorders of plasma-protein metabolism, not elsewhere classified; I95.9 Hypotension, unspecified; R65.20 Severe sepsis without septic shock; E87.70 Fluid overload, unspecified; E03.9 Hypothyroidism, unspecified; I48.91 Unspecified atrial fibrillation; M19.90 Unspecified osteoarthritis, unspecified site; N40.0 Benign prostatic hyperplasia without lower urinary tract symptoms; W19.XXXA Unspecified fall, initial encounter; Y92.019 Unspecified place in single-family (private) house as the place of occurrence of the external cause; Z86.73 Personal history of transient ischemic attack (TIA), and cerebral infarction without residual deficits; Z20.822 Contact with and (suspected) exposure to COVID-19
CPT/HCPCS: 36415; 36600; 70450; 71045; 71260; 80053; 80061; 81001; 81003; 82550; 82553; 82805; 83605; 83690; 83880; 84443; 84484; 85025; 85651; 87040; 93005; 93306; 94660; 97139; 99251; 99284; J0456; J1100; J1650; J1940; J2543; J3370; J7030; J7050; Q9967; U0002

== ENCOUNTER → 2020-11-24 | Emergency (ER) | payer MEDICARE ==
[~2020-11-24] VITALS: Ht 172.7 cm; Wt 101.2 kg
[~2020-11-24] MED LIST changes: +AUGMENTIN 875-1 EACH PO; +LIDOCAINE JELLY 2% 10ML URO-JET ONE; +LIDOCAINE JELLY 2% 10ML URO-JET TOP ONE
[2020-11-24 11:55] LABS: CLARITY,URINE CLOUDY (CLEAR); COLOR,URINE YELLOW (YELLOW); KETONES,URINE NEGATIVE (NEGATIVE); LEUKOCYTE ESTERASE ,URINE NEGATIVE (NEGATIVE); NITRITE,URINE NEGATIVE (NEGATIVE); PROTEIN,URINE DIPSTICK 2+ (NEGATIVE); URINE UROBILINOGEN 0.2 mg/dL (0.2 - 1)
[2020-11-24 12:03] LABS: WBC,URINE (MAN) 0-5 /HPF (0-5)
[2020-11-24 12:04] LABS: MUCUS,URINE MANY (RARE)
== END | disposition home or self-care (01) ==
LOC: ER 11:10
DX: R33.9 Retention of urine, unspecified (principal); E03.9 Hypothyroidism, unspecified; Z87.440 Personal history of urinary (tract) infections; N40.1 Benign prostatic hyperplasia with lower urinary tract symptoms
CPT/HCPCS: 51700; 81001; 87086; 99283

== ENCOUNTER 2020-12-08 21:24 | Emergency (ER) | payer MEDICARE ==
[~2020-12-08] VITALS: Ht 172.7 cm; Wt 101.2 kg
[~2020-12-08 21:24] MED LIST changes: -LIDOCAINE JELLY 2% 10ML URO-JET ONE; -LIDOCAINE JELLY 2% 10ML URO-JET TOP ONE
[2020-12-08 22:26] LABS: BASOPHILS # (AUTO) 0.1 (0.0-0.1); BASOPHILS % 0.4 % (0.0-1.0); EOSINOPHILS # (AUTO) 0.4 (0.0-0.4); EOSINOPHILS % 2.7 % (0.0-6.0); HEMATOCRIT 48.1 % (38.2-49.6); HEMOGLOBIN 15.3 g/dL (14.0-18.0); LYMPHOCYTES # (AUTO) 1.1 (1.0-3.2); LYMPHOCYTES % 8.2 % (18.0-39.1); MEAN CORPUSCULAR HEMOGLOBIN 28.2 pg (28-32); MEAN CORPUSCULAR HGB CONC 31.8 g/dL (31-35); MEAN CORPUSCULAR VOLUME 88.7 fL (81-99); MONOCYTES # (AUTO) 1.1 (0.2-0.8); NEUTROPHILS # (AUTO) 11.1 (2.1-6.9); PLATELET COUNT 150 x10e3/uL (140-360); RED BLOOD COUNT 5.42 x10e6/uL (4.3-5.7); RED CELL DISTRIBUTION WIDTH 15.2 % (11.7-14.4)
[2020-12-08 22:46] LABS: ALBUMIN 3.1 g/dL (3.5-5.0); ALBUMIN/GLOBULIN RATIO 0.8 (0.8-2.0); CALCIUM 8.3 mg/dL (8.4-10.2); CREATININE, SERUM 1.54 mg/dL (0.72-1.25)
[2020-12-08 23:11] LABS: CLARITY,URINE CLEAR (CLEAR); COLOR,URINE YELLOW (YELLOW); KETONES,URINE NEGATIVE (NEGATIVE); LEUKOCYTE ESTERASE ,URINE SMALL (NEGATIVE); NITRITE,URINE NEGATIVE (NEGATIVE); PROTEIN,URINE DIPSTICK NEGATIVE (NEGATIVE); URINE UROBILINOGEN 0.2 mg/dL (0.2 - 1)
[2020-12-08 23:17] LABS: EPITHELIAL CELLS,URINE RARE /LPF; RBC,URINE 0-5 /HPF (0-5)
[2020-12-08 23:18] LABS: BACTERIA,URINE MODERATE /HPF
[2020-12-08] MEDS ORDERED: ULTRAM50 MG PO (23:22)
[2020-12-08] MEDS ORDERED: TRAMADOL HCL 50 MG TAB PO ONE (23:30)
[2020-12-09 00:53] VITALS: BP 120/72
== END 2020-12-09 00:56 | disposition home or self-care (01) ==
LOC: ER 21:40
DX: M54.5 Low back pain (principal); E03.9 Hypothyroidism, unspecified
CPT/HCPCS: 36415; 74176; 80053; 81001; 85025; 87086; 87186; 99284

== ENCOUNTER 2020-12-17 11:12 | Inpatient (IN) | payer MEDICARE ==
[~2020-12-17] VITALS: Ht 172.7 cm; Wt 78.0 kg
[~2020-12-17 11:12] MED LIST changes: +ULTRAM50 MG PO
[2020-12-17] MEDS ORDERED: SODIUM CHLORIDE 0.9% 1000ML 1,000 ML IV STA (11:41)
[2020-12-17] MEDS ORDERED: MEROPENEM 1 GM in SODIUM CHLORIDE 0.9% 100 ML 100 ML IV STA (11:58)
[2020-12-17 12:06] LABS: BASOPHILS # (AUTO) 0.1 (0.0-0.1); BASOPHILS % 0.6 % (0.0-1.0); EOSINOPHILS # (AUTO) 0.6 (0.0-0.4); EOSINOPHILS % 4.2 % (0.0-6.0); HEMATOCRIT 49.7 % (38.2-49.6); LYMPHOCYTES # (AUTO) 1.6 (1.0-3.2); LYMPHOCYTES % 11.2 % (18.0-39.1); MEAN CORPUSCULAR HEMOGLOBIN 28.3 pg (28-32); MEAN CORPUSCULAR HGB CONC 32.2 g/dL (31-35); MONOCYTES # (AUTO) 1.3 (0.2-0.8); MONOCYTES % 9.2 % (4.4-11.3); NEUTROPHILS # (AUTO) 10.2 (2.1-6.9); NEUTROPHILS % 73.6 % (38.7-80.0); PLATELET COUNT 164 x10e3/uL (140-360); RED BLOOD COUNT 5.65 x10e6/uL (4.3-5.7); RED CELL DISTRIBUTION WIDTH 16.1 % (11.7-14.4)
[2020-12-17 12:22] LABS: CLARITY,URINE CLOUDY (CLEAR); COLOR,URINE YELLOW (YELLOW); LEUKOCYTE ESTERASE ,URINE SMALL (NEGATIVE)
[2020-12-17 12:23] LABS: KETONES,URINE TRACE (NEGATIVE); NITRITE,URINE NEGATIVE (NEGATIVE); PROTEIN,URINE DIPSTICK 2+ (NEGATIVE); URINE UROBILINOGEN 0.2 mg/dL (0.2 - 1)
[2020-12-17] MEDS ORDERED: MEROPENEM 1 GM VIAL ONE (12:23)
[2020-12-17] MEDS ORDERED: SODIUM CHLORIDE 0.9% 50ML 50 ML ONE (12:23)
[2020-12-17] MEDS ORDERED: SODIUM CHLORIDE 0.9% 100 ML ONE (12:24)
[2020-12-17 12:28] LABS: ALBUMIN 3.1 g/dL (3.5-5.0); ALBUMIN/GLOBULIN RATIO 0.8 (0.8-2.0); ANION GAP 15.9 mmol/L (8-16); CALCIUM 8.7 mg/dL (8.4-10.2); CREATININE, SERUM 2.02 mg/dL (0.72-1.25); MAGNESIUM 2.1 MG/DL (1.3-2.1); POTASSIUM 3.9 mmol/L (3.5-5.1)
[2020-12-17 12:37] LABS: BACTERIA,URINE MANY /HPF; EPITHELIAL CELLS,URINE MODERATE /LPF; RBC,URINE 21-50 /HPF (0-5); WBC,URINE (MAN) >50 /HPF (0-5)
[2020-12-17] MEDS ORDERED: FARXIGA10 MG PO (12:50)
[2020-12-17] MEDS ORDERED: PREDNISONE5 MG PO (12:50)
[2020-12-17] MEDS ORDERED: FUROSEMIDE40 MG PO (12:50)
[2020-12-17] MEDS ORDERED: POTASSIUM CHLO20 ME1 PO (12:50)
[2020-12-17] MEDS ORDERED: OMEPRAZOLE40 MG PO (12:50)
[2020-12-17] MEDS ORDERED: LEFLUNOMIDE20 MG PO (12:50)
[2020-12-17] MEDS ORDERED: FLOMAX0.4 MG PO (12:50)
[2020-12-17] MEDS ORDERED: TRELEGY ELLIPT1 EACH INH (12:51)
[2020-12-17] MEDS: SODIUM CHLORIDE 0.9% 1000ML 1,000 ML IV SCH ×2 (14:01→16:45)
[2020-12-17] MEDS: TRAMADOL HCL 50 MG TAB PO SCH ×2 (18:00→23:44)
[2020-12-17] MEDS ORDERED: MAGNESIUM HYDROXIDE 30 ML UDC PO PRN (18:15)
[2020-12-17] MEDS ORDERED: ACETAMINOPHEN 325 MG TAB PO PRN (18:15)
[2020-12-17] MEDS: MORPHINE SULFATE INJ 2 MG/ML SYR IV PRN (19:28)
[2020-12-17] MEDS: ONDANSETRON HCL INJ 2MG/ML 2ML 2 MG/ML VIAL IV PRN (19:29)
[2020-12-17] MEDS ORDERED: MEROPENEM 1 GM in SODIUM CHLORIDE 0.9% 100 ML 100 ML IV SCH (21:00)
[2020-12-17] MEDS: MEROPENEM 1 GM in SODIUM CHLORIDE 0.9% 100 ML IV SCH (21:37)
[2020-12-18 05:52] LABS: BASOPHILS # (AUTO) 0.1 (0.0-0.1); BASOPHILS % 0.4 % (0.0-1.0); EOSINOPHILS # (AUTO) 0.8 (0.0-0.4); EOSINOPHILS % 6.4 % (0.0-6.0); HEMOGLOBIN 13.9 g/dL (14.0-18.0); LYMPHOCYTES # (AUTO) 1.5 (1.0-3.2); LYMPHOCYTES % 12.7 % (18.0-39.1); MEAN CORPUSCULAR HEMOGLOBIN 28.4 pg (28-32); MEAN CORPUSCULAR HGB CONC 31.6 g/dL (31-35); MONOCYTES # (AUTO) 1.2 (0.2-0.8); MONOCYTES % 9.8 % (4.4-11.3); NEUTROPHILS # (AUTO) 8.3 (2.1-6.9); NEUTROPHILS % 69.4 % (38.7-80.0); PLATELET COUNT 134 x10e3/uL (140-360); RED BLOOD COUNT 4.89 x10e6/uL (4.3-5.7); RED CELL DISTRIBUTION WIDTH 15.7 % (11.7-14.4)
[2020-12-18] MEDS: TRAMADOL HCL 50 MG TAB PO SCH ×2 (06:00→12:08)
[2020-12-18 06:32] LABS: ALBUMIN 2.5 g/dL (3.5-5.0); ALBUMIN/GLOBULIN RATIO 0.8 (0.8-2.0); CREATININE, SERUM 1.23 mg/dL (0.72-1.25)
[2020-12-18] MEDS: MEROPENEM 1 GM in SODIUM CHLORIDE 0.9% 100 ML IV SCH (08:16)
[2020-12-18] MEDS: SODIUM CHLORIDE 0.9% 1000ML 1,000 ML IV SCH (08:17)
[2020-12-18] MEDS: ONDANSETRON HCL INJ 2MG/ML 2ML 2 MG/ML VIAL IV PRN (08:25)
[2020-12-18] MEDS: MORPHINE SULFATE INJ 2 MG/ML SYR IV PRN (08:25)
[2020-12-18] MEDS ORDERED: PANTOPRAZOLE SOD 40 MG TABEC PO SCH (09:00)
[2020-12-18] MEDS ORDERED: LEVOTHYROXINE SODIUM 50 MCG TAB PO SCH (09:00)
[2020-12-18] MEDS ORDERED: FINASTERIDE 5 MG TAB PO SCH (09:00)
[2020-12-18] MEDS ORDERED: TAMSULOSIN HCL 0.4 MG CAP PO SCH (09:00)
[2020-12-18] MEDS ORDERED: POTASSIUM CHLORIDE 20 MEQ TAB CR PO SCH (09:00)
[2020-12-19] MEDS ORDERED: CIPRO500 MG/5 M PO (14:35)
[2020-12-19] MEDS ORDERED: TYLENOL # 31 EA PO (14:35)
[2020-12-19 15:52] VITALS: BP 122/56
== END 2020-12-19 16:53 | disposition home or self-care (01) | DRG 698 ==
LOC: ER 11:39 → ERHOLD 13:42 → MED/SURG3 15:44
PROVIDERS: ADMIT Internal Medicine; ATTEND Internal Medicine
DX: T83.511A Infection and inflammatory reaction due to indwelling urethral catheter, initial encounter (principal); A41.89 Other specified sepsis; N10 Acute pyelonephritis; N17.9 Acute kidney failure, unspecified; D84.9 Immunodeficiency, unspecified; I50.32 Chronic diastolic (congestive) heart failure; N13.8 Other obstructive and reflux uropathy; Z16.12 Extended spectrum beta lactamase (ESBL) resistance; T83.038A Leakage of other urinary catheter, initial encounter; N40.1 Benign prostatic hyperplasia with lower urinary tract symptoms; I11.0 Hypertensive heart disease with heart failure; E88.09 Other disorders of plasma-protein metabolism, not elsewhere classified; E03.9 Hypothyroidism, unspecified; I48.91 Unspecified atrial fibrillation; M19.90 Unspecified osteoarthritis, unspecified site; R53.1 Weakness; M06.9 Rheumatoid arthritis, unspecified; B96.1 Klebsiella pneumoniae [K. pneumoniae] as the cause of diseases classified elsewhere; Z20.822 Contact with and (suspected) exposure to COVID-19
CPT/HCPCS: 36415; 51700; 74176; 80053; 81001; 82948; 83605; 83735; 85025; 87040; 87086; 87186; 93005; 99284; J2185; J2270; J2405; J7030; J7050; U0002

== ENCOUNTER 2021-12-19 11:40 | Emergency (ER) | payer MEDICARE, OTHER ==
[~2021-12-19] VITALS: Ht 172.7 cm; Wt 78.0 kg
[~2021-12-19 11:40] MED LIST changes: +CIPRO500 MG/5 M PO; +FARXIGA10 MG PO; +FLOMAX0.4 MG PO; +FUROSEMIDE40 MG PO; +LEFLUNOMIDE20 MG PO; +OMEPRAZOLE40 MG PO; +POTASSIUM CHLO20 ME1 PO; +PREDNISONE5 MG PO; +TRELEGY ELLIPT1 EACH INH; +TYLENOL # 31 EA PO
[2021-12-19] MEDS ORDERED: Morphine 2mg Syringe 2 MG/ML SYR IM ONE (12:15)
[2021-12-19] MEDS ORDERED: LIDOCAINE1 EACH TD (12:33)
[2021-12-19] MEDS ORDERED: HYDROCODON-ACE1 EA11 PO (12:33)
[2021-12-19] MEDS ORDERED: CYCLOBENZAPRINE5 MG PO (12:36)
[2021-12-19] MEDS ORDERED: NAPROXEN250 MG PO (12:36)
== END 2021-12-19 12:54 | disposition home or self-care (01) ==
LOC: ER 11:43
DX: M54.50 Low back pain, unspecified (principal); G89.29 Other chronic pain; J84.10 Pulmonary fibrosis, unspecified; E03.9 Hypothyroidism, unspecified
CPT/HCPCS: 99283; J2270

== ENCOUNTER 2022-09-03 17:34 | Inpatient (IN) | payer OTHER ==
[~2022-09-03] VITALS: Ht 172.7 cm; Wt 78.0 kg
[~2022-09-03 17:34] MED LIST changes: +CYCLOBENZAPRINE5 MG PO; +HYDROCODON-ACE1 EA11 PO; +LIDOCAINE1 EACH TD; +NAPROXEN250 MG PO
[2022-09-03] MEDS ORDERED: SODIUM CHLORIDE 0.9% 1000ML 1,000 ML IV SCH (17:45)
[2022-09-03] MEDS ORDERED: SODIUM CHLORIDE 0.9% 1000ML 1,000 ML IV ONE (17:45)
[2022-09-03 18:13] LABS: BASOPHILS % 0.3 % (0.0-1.0); EOSINOPHILS # (AUTO) 0.2 (0.0-0.4); EOSINOPHILS % 1.6 % (0.0-6.0); HEMATOCRIT 46.5 % (38.2-49.6); HEMOGLOBIN 14.6 g/dL (14.0-18.0); LYMPHOCYTES # (AUTO) 1.2 (1.0-3.2); LYMPHOCYTES % 9.7 % (18.0-39.1); MEAN CORPUSCULAR HGB CONC 31.4 g/dL (31-35); MEAN CORPUSCULAR VOLUME 89.3 fL (81-99); MONOCYTES % 8.2 % (4.4-11.3); NEUTROPHILS # (AUTO) 10.1 (2.1-6.9); NEUTROPHILS % 79.6 % (38.7-80.0); PLATELET COUNT 230 x10e3/uL (140-360); RED BLOOD COUNT 5.21 x10e6/uL (4.3-5.7)
[2022-09-03 18:23] LABS: CLARITY,URINE CLOUDY (CLEAR); COLOR,URINE YELLOW (YELLOW); KETONES,URINE NEGATIVE (NEGATIVE); LEUKOCYTE ESTERASE ,URINE SMALL (NEGATIVE); NITRITE,URINE POSITIVE (NEGATIVE); PROTEIN,URINE DIPSTICK 1+ (NEGATIVE); URINE UROBILINOGEN 0.2 mg/dL (0.2 - 1)
[2022-09-03 18:30] LABS: ALBUMIN 3.3 g/dL (3.5-5.0); ALBUMIN/GLOBULIN RATIO 0.8 (0.8-2.0); ANION GAP 14.9 mmol/L (8-16); CREATININE, SERUM 1.34 mg/dL (0.72-1.25); POTASSIUM 3.9 mmol/L (3.5-5.1)
[2022-09-03 18:33] LABS: BACTERIA,URINE MODERATE /HPF; EPITHELIAL CELLS,URINE FEW /LPF; WBC,URINE (MAN) >50 /HPF (0-5)
[2022-09-03] MEDS: ACETAMINOPHEN 1000 MG/100 ML IV SCH (18:35)
[2022-09-03] MEDS ORDERED: SODIUM CHLORIDE FLUSH 10 ML SYR INJ PRN (19:15)
[2022-09-03] MEDS ORDERED: ASPIRIN 81 MG CHEW TAB PO ONE (19:15)
[2022-09-03] MEDS ORDERED: FUROSEMIDE INJ 10 MG/ML 4 ML VIAL IV ONE (19:15)
[2022-09-03] MEDS ORDERED: ONDANSETRON HCL INJ 2MG/ML 2ML 2 MG/ML VIAL IV PRN (19:15)
[2022-09-03] MEDS: Vancomycin IV 1 GM in SODIUM CHLORIDE 0.9% 250ML 250 ML IV SCH (19:19)
[2022-09-03 19:32] LABS: CREATINE KINASE 143 IU/L (30-200)
[2022-09-03 20:55] VITALS: BP 110/67
[2022-09-03 21:00] VITALS: BP 110/67
[2022-09-03] MEDS ORDERED: ATORVASTATIN CA10 MG PO (22:20)
[2022-09-04] VITALS (7 sets, daily range): BP systolic 109–144; BP diastolic 58–85
[2022-09-04] MEDS: ACETAMINOPHEN 1000 MG/100 ML IV SCH ×2 (00:42→06:01)
[2022-09-04 05:48] LABS: BASOPHILS # (AUTO) 0.1 (0.0-0.1); BASOPHILS % 0.5 % (0.0-1.0); EOSINOPHILS # (AUTO) 0.5 (0.0-0.4); EOSINOPHILS % 3.9 % (0.0-6.0); HEMATOCRIT 46.6 % (38.2-49.6); HEMOGLOBIN 14.4 g/dL (14.0-18.0); LYMPHOCYTES # (AUTO) 1.9 (1.0-3.2); MEAN CORPUSCULAR HGB CONC 30.9 g/dL (31-35); MEAN CORPUSCULAR VOLUME 90.5 fL (81-99); MONOCYTES # (AUTO) 1.6 (0.2-0.8); MONOCYTES % 13.2 % (4.4-11.3); NEUTROPHILS # (AUTO) 7.9 (2.1-6.9); NEUTROPHILS % 65.9 % (38.7-80.0); PLATELET COUNT 192 x10e3/uL (140-360); RED BLOOD COUNT 5.15 x10e6/uL (4.3-5.7); RED CELL DISTRIBUTION WIDTH 14.9 % (11.7-14.4)
[2022-09-04] MEDS: Vancomycin IV 1 GM in SODIUM CHLORIDE 0.9% 250ML 250 ML IV SCH (06:01)
[2022-09-04 07:07] LABS: ANION GAP 14.5 mmol/L (8-16); CALCIUM 8.7 mg/dL (8.4-10.2); CREATININE, SERUM 1.13 mg/dL (0.72-1.25); POTASSIUM 3.5 mmol/L (3.5-5.1)
[2022-09-04] MEDS ORDERED: LIDOCAINE 4% PATCH TP PRN (08:45)
[2022-09-04] MEDS ORDERED: ALBUTEROL/IPRATROPIUM 3 ML NEB NEB SCH (08:45)
[2022-09-04] MEDS ORDERED: ACETAMINOPHEN/CODEINE 300MG - 30MG TAB PO PRN (08:45)
[2022-09-04] MEDS ORDERED: ACETAMINOPHEN 325 MG TAB PO PRN (08:45)
[2022-09-04] MEDS ORDERED: ALBUTEROL/IPRATROPIUM 3 ML NEB NEB PRN (08:45)
[2022-09-04] MEDS ORDERED: IPRATROPIUM BROMIDE 0.02% 2.5 ML NEB NEB PRN (09:30)
[2022-09-04] MEDS ORDERED: ALBUTEROL SULF 0.083% NEB SOLN 3 ML NEB NEB SCH (09:30)
[2022-09-04] MEDS ORDERED: ALBUTEROL SULF 0.083% NEB SOLN 3 ML NEB NEB PRN (09:30)
[2022-09-04] MEDS: TAMSULOSIN HCL 0.4 MG CAP PO SCH (09:35)
[2022-09-04] MEDS: PANTOPRAZOLE SOD 40 MG TABEC PO SCH (09:35)
[2022-09-04] MEDS: BENZONATATE 100 MG CAP PO PRN ×2 (09:35→17:16)
[2022-09-04] MEDS: FINASTERIDE 5 MG TAB PO SCH (09:35)
[2022-09-04 09:36] LABS: CREATINE KINASE MB 9.2 ng/mL (0-5.0)
[2022-09-04] MEDS: LEVOTHYROXINE SODIUM 75 MCG TAB PO SCH (09:36)
[2022-09-04] MEDS: TRAMADOL HCL 50 MG TAB PO SCH ×2 (12:53→17:14)
[2022-09-04] MEDS ORDERED: IOPAMIDOL 370 MG/ML 100 ML INFUS..BTL INJ ONE (13:53)
[2022-09-04 15:11] LABS: CREATINE KINASE MB 4.1 ng/mL (0-5.0)
[2022-09-04] MEDS: ENOXAPARIN SOD INJ 40 MG/0.4 ML SYR SC SCH (17:13)
[2022-09-04] MEDS: ATORVASTATIN 10 MG TAB PO SCH (21:47)
[2022-09-05] MEDS: TRAMADOL HCL 50 MG TAB PO SCH ×4 (03:22→17:51)
[2022-09-05] MEDS: LEVOTHYROXINE SODIUM 75 MCG TAB PO SCH (05:38)
[2022-09-05] MEDS: IPRATROPIUM BROMIDE 0.02% 2.5 ML NEB NEB SCH ×3 (07:00→19:30)
[2022-09-05] MEDS: ALBUTEROL SULF 0.083% NEB SOLN 3 ML NEB NEB SCH ×3 (07:00→19:30)
[2022-09-05 08:00] VITALS: BP 137/92
[2022-09-05 08:13] VITALS: BP 137/92
[2022-09-05] MEDS: DEXAMETHASONE SOD PHOS 10 MG/1 ML VIAL IV SCH (09:39)
[2022-09-05] MEDS: PANTOPRAZOLE SOD 40 MG TABEC PO SCH (09:40)
[2022-09-05] MEDS: TAMSULOSIN HCL 0.4 MG CAP PO SCH (09:40)
[2022-09-05] MEDS: FINASTERIDE 5 MG TAB PO SCH (09:40)
[2022-09-05] MEDS: BENZONATATE 100 MG CAP PO PRN (09:41)
[2022-09-05 11:30] VITALS: BP 132/77
[2022-09-05] MEDS: ENOXAPARIN SOD INJ 40 MG/0.4 ML SYR SC SCH (16:09)
[2022-09-05] MEDS ORDERED: REMDESIVIR 100MG 200 MG in SODIUM CHLORIDE 0.9% 100 ML IV ONE (17:00)
[2022-09-05 17:06] VITALS: BP 130/83
[2022-09-05] MEDS: ATORVASTATIN 10 MG TAB PO SCH (20:05)
[2022-09-06] MEDS: ALBUTEROL SULF 0.083% NEB SOLN 3 ML NEB NEB SCH ×4 (00:35→19:00)
[2022-09-06] MEDS: IPRATROPIUM BROMIDE 0.02% 2.5 ML NEB NEB SCH ×4 (00:35→19:00)
[2022-09-06] MEDS: TRAMADOL HCL 50 MG TAB PO SCH ×4 (02:46→16:42)
[2022-09-06] MEDS: LEVOTHYROXINE SODIUM 75 MCG TAB PO SCH (06:00)
[2022-09-06 06:10] LABS: BASOPHILS % 0.2 % (0.0-1.0); EOSINOPHILS % 0.2 % (0.0-6.0); HEMATOCRIT 41.5 % (38.2-49.6); HEMOGLOBIN 12.8 g/dL (14.0-18.0); LYMPHOCYTES # (AUTO) 1.1 (1.0-3.2); LYMPHOCYTES % 10.7 % (18.0-39.1); MEAN CORPUSCULAR HEMOGLOBIN 27.6 pg (28-32); MEAN CORPUSCULAR HGB CONC 30.8 g/dL (31-35); MEAN CORPUSCULAR VOLUME 89.6 fL (81-99); MONOCYTES % 9.5 % (4.4-11.3); NEUTROPHILS # (AUTO) 8.1 (2.1-6.9); NEUTROPHILS % 78.9 % (38.7-80.0); PLATELET COUNT 221 x10e3/uL (140-360); RED BLOOD COUNT 4.63 x10e6/uL (4.3-5.7); RED CELL DISTRIBUTION WIDTH 14.6 % (11.7-14.4)
[2022-09-06 06:39] LABS: ANION GAP 14.1 mmol/L (8-16); CALCIUM 8.9 mg/dL (8.4-10.2); CREATININE, SERUM 0.78 mg/dL (0.72-1.25); POTASSIUM 4.1 mmol/L (3.5-5.1)
[2022-09-06 08:00] VITALS: BP 118/85
[2022-09-06 08:43] VITALS: BP 118/85
[2022-09-06] MEDS: FINASTERIDE 5 MG TAB PO SCH (09:07)
[2022-09-06] MEDS: PANTOPRAZOLE SOD 40 MG TABEC PO SCH (09:07)
[2022-09-06] MEDS: TAMSULOSIN HCL 0.4 MG CAP PO SCH (09:07)
[2022-09-06] MEDS: DEXAMETHASONE SOD PHOS 10 MG/1 ML VIAL IV SCH (09:08)
[2022-09-06] MEDS ORDERED: ONDANSETRON HCL 4 MG ORAL DISINTEGRATING TAB SL PRN (10:30)
[2022-09-06 12:00] VITALS: BP 114/68
[2022-09-06] MEDS: REMDESIVIR 100MG 100 MG in SODIUM CHLORIDE 0.9% 100 ML IV SCH (12:20)
[2022-09-06] MEDS: BENZONATATE 100 MG CAP PO SCH ×2 (16:41→20:51)
[2022-09-06] MEDS: ENOXAPARIN SOD INJ 40 MG/0.4 ML SYR SC SCH (16:42)
[2022-09-06 20:00] VITALS: BP 131/73
[2022-09-06] MEDS: ATORVASTATIN 10 MG TAB PO SCH (20:51)
[2022-09-06 21:00] VITALS: BP 131/73
[2022-09-07] VITALS (8 sets, daily range): BP systolic 106–141; BP diastolic 59–82
[2022-09-07] MEDS: ALBUTEROL SULF 0.083% NEB SOLN 3 ML NEB NEB SCH ×4 (01:05→21:20)
[2022-09-07] MEDS: IPRATROPIUM BROMIDE 0.02% 2.5 ML NEB NEB SCH ×4 (01:05→21:20)
[2022-09-07] MEDS: TRAMADOL HCL 50 MG TAB PO SCH ×5 (06:00→23:10)
[2022-09-07] MEDS: LEVOTHYROXINE SODIUM 75 MCG TAB PO SCH (06:15)
[2022-09-07 07:45] LABS: BASOPHILS % 0.3 % (0.0-1.0); EOSINOPHILS % 0.3 % (0.0-6.0); HEMATOCRIT 45.4 % (38.2-49.6); HEMOGLOBIN 14.2 g/dL (14.0-18.0); LYMPHOCYTES # (AUTO) 1.6 (1.0-3.2); LYMPHOCYTES % 13.7 % (18.0-39.1); MEAN CORPUSCULAR HEMOGLOBIN 28.1 pg (28-32); MEAN CORPUSCULAR HGB CONC 31.3 g/dL (31-35); MEAN CORPUSCULAR VOLUME 89.7 fL (81-99); MONOCYTES # (AUTO) 0.9 (0.2-0.8); MONOCYTES % 8.2 % (4.4-11.3); NEUTROPHILS # (AUTO) 8.7 (2.1-6.9); NEUTROPHILS % 76.7 % (38.7-80.0); PLATELET COUNT 232 x10e3/uL (140-360); RED BLOOD COUNT 5.06 x10e6/uL (4.3-5.7); RED CELL DISTRIBUTION WIDTH 14.8 % (11.7-14.4)
[2022-09-07 08:09] LABS: ANION GAP 13.9 mmol/L (8-16); CALCIUM 9.1 mg/dL (8.4-10.2); CREATININE, SERUM 0.83 mg/dL (0.72-1.25); POTASSIUM 3.9 mmol/L (3.5-5.1)
[2022-09-07] MEDS: PANTOPRAZOLE SOD 40 MG TABEC PO SCH (09:47)
[2022-09-07] MEDS: BENZONATATE 100 MG CAP PO SCH ×3 (09:48→20:18)
[2022-09-07] MEDS: TAMSULOSIN HCL 0.4 MG CAP PO SCH (09:48)
[2022-09-07] MEDS: DEXAMETHASONE SOD PHOS 10 MG/1 ML VIAL IV SCH (09:48)
[2022-09-07] MEDS: FINASTERIDE 5 MG TAB PO SCH (09:48)
[2022-09-07] MEDS: REMDESIVIR 100MG 100 MG in SODIUM CHLORIDE 0.9% 100 ML IV SCH (14:25)
[2022-09-07] MEDS: ENOXAPARIN SOD INJ 40 MG/0.4 ML SYR SC SCH (17:11)
[2022-09-07] MEDS: ATORVASTATIN 10 MG TAB PO SCH (20:18)
[2022-09-08] VITALS (8 sets, daily range): BP systolic 108–131; BP diastolic 68–88
[2022-09-08] MEDS: IPRATROPIUM BROMIDE 0.02% 2.5 ML NEB NEB SCH ×4 (01:55→19:47)
[2022-09-08] MEDS: ALBUTEROL SULF 0.083% NEB SOLN 3 ML NEB NEB SCH ×4 (01:55→19:47)
[2022-09-08] MEDS: TRAMADOL HCL 50 MG TAB PO SCH ×3 (05:36→16:46)
[2022-09-08] MEDS: LEVOTHYROXINE SODIUM 75 MCG TAB PO SCH (05:36)
[2022-09-08] MEDS: PANTOPRAZOLE SOD 40 MG TABEC PO SCH (08:31)
[2022-09-08] MEDS: DEXAMETHASONE SOD PHOS 10 MG/1 ML VIAL IV SCH (08:31)
[2022-09-08] MEDS: FINASTERIDE 5 MG TAB PO SCH (08:31)
[2022-09-08] MEDS: BENZONATATE 100 MG CAP PO SCH ×3 (08:31→20:45)
[2022-09-08] MEDS: TAMSULOSIN HCL 0.4 MG CAP PO SCH (08:31)
[2022-09-08] MEDS: REMDESIVIR 100MG 100 MG in SODIUM CHLORIDE 0.9% 100 ML IV SCH (13:38)
[2022-09-08] MEDS: ENOXAPARIN SOD INJ 40 MG/0.4 ML SYR SC SCH (16:45)
[2022-09-08] MEDS: ATORVASTATIN 10 MG TAB PO SCH (20:45)
[2022-09-09 00:04] VITALS: BP 114/68
[2022-09-09] MEDS: TRAMADOL HCL 50 MG TAB PO SCH ×3 (00:14→12:25)
[2022-09-09] MEDS: IPRATROPIUM BROMIDE 0.02% 2.5 ML NEB NEB SCH ×3 (00:50→13:00)
[2022-09-09] MEDS: ALBUTEROL SULF 0.083% NEB SOLN 3 ML NEB NEB SCH ×3 (00:50→13:00)
[2022-09-09] MEDS ORDERED: MELATONIN 5 MG TABLET PO PRN (01:00)
[2022-09-09 04:00] VITALS: BP 129/79
[2022-09-09] MEDS: LEVOTHYROXINE SODIUM 75 MCG TAB PO SCH (05:19)
[2022-09-09 08:18] VITALS: BP 141/88
[2022-09-09] MEDS: BENZONATATE 100 MG CAP PO SCH (08:55)
[2022-09-09] MEDS: FINASTERIDE 5 MG TAB PO SCH (08:55)
[2022-09-09] MEDS: TAMSULOSIN HCL 0.4 MG CAP PO SCH (08:55)
[2022-09-09] MEDS: PANTOPRAZOLE SOD 40 MG TABEC PO SCH (08:55)
[2022-09-09] MEDS: DEXAMETHASONE SOD PHOS 10 MG/1 ML VIAL IV SCH (08:56)
[2022-09-09 09:00] VITALS: BP 141/88
[2022-09-09] MEDS ORDERED: GUAIFENESIN 600MG/DEXTROMETHORPHAN 30MG TABSR PO SCH (11:30)
[2022-09-09 12:33] VITALS: BP 143/79
[2022-09-09] MEDS: REMDESIVIR 100MG 100 MG in SODIUM CHLORIDE 0.9% 100 ML IV SCH (15:08)
[2022-09-09] MEDS ORDERED: CEFDINIR300 MG PO (15:14)
[2022-09-09] MEDS ORDERED: DEXAMETHASONE4 MG PO (15:16)
[2022-09-09] MEDS ORDERED: MUCINEX600 MG PO (15:19)
[2022-09-09 15:49] VITALS: BP 137/76
[2022-09-10] MEDS ORDERED: AZITHROMYCIN 250 MG TAB PO SCH (10:00)
== END 2022-09-09 16:51 | disposition home or self-care (01) | DRG 177 ==
LOC: ER 17:36 → ERHOLD 19:06 → MED/SURG3 20:30
PROVIDERS: ADMIT Internal Medicine; ATTEND Internal Medicine
PROC: 8E0ZXY6 Isolation (ICD-10-PCS; principal; 2022-09-03)
PROC: 3E0DX3Z Introduction of Anti-inflammatory into Mouth and Pharynx, External Approach (ICD-10-PCS; 2022-09-05)
PROC: XW033E5 Introduction of Remdesivir Anti-infective into Peripheral Vein, Percutaneous Approach, New Technology Group 5 (ICD-10-PCS; 2022-09-06)
DX: U07.1 COVID-19 (principal); J12.82 Pneumonia due to coronavirus disease 2019; J96.01 Acute respiratory failure with hypoxia; N39.0 Urinary tract infection, site not specified; I13.0 Hypertensive heart and chronic kidney disease with heart failure and stage 1 through stage 4 chronic kidney disease, or unspecified chronic kidney disease; N17.9 Acute kidney failure, unspecified; E03.9 Hypothyroidism, unspecified; N40.0 Benign prostatic hyperplasia without lower urinary tract symptoms; I50.9 Heart failure, unspecified; N18.9 Chronic kidney disease, unspecified; E11.22 Type 2 diabetes mellitus with diabetic chronic kidney disease; R59.1 Generalized enlarged lymph nodes; B96.20 Unspecified Escherichia coli [E. coli] as the cause of diseases classified elsewhere; Z85.46 Personal history of malignant neoplasm of prostate
CPT/HCPCS: 36415; 71045; 71260; 74177; 80048; 80053; 81001; 82550; 82553; 83605; 83880; 84484; 85025; 87040; 87086; 87186; 93005; 94799; 99252; 99284; J0248; J0692; J1100; J1650; J1940; J7030; J7050; Q9967

== ENCOUNTER 2022-12-19 15:23 | Inpatient (IN) | payer MEDICARE, OTHER ==
[~2022-12-19] VITALS: Ht 167.6 cm; Wt 90.7 kg
[2022-12-19] VITALS (10 sets, daily range): BP systolic 112–133; BP diastolic 59–83; PULSE 72–84; RESP 22–33; TEMP 98.7; O2SAT 93–99
[~2022-12-19 15:23] MED LIST changes: +ATORVASTATIN CA10 MG PO; +CEFDINIR300 MG PO; +DEXAMETHASONE4 MG PO; +MUCINEX600 MG PO
[2022-12-19] MEDS ORDERED: SODIUM CHLORIDE 0.9% 1000ML 1,000 ML IV STA (15:44)
[2022-12-19 16:08] LABS: BASOPHILS # (AUTO) 0.1 (0.0-0.1); BASOPHILS % 0.5 % (0.0-1.0); EOSINOPHILS # (AUTO) 0.3 (0.0-0.4); EOSINOPHILS % 1.3 % (0.0-6.0); HEMATOCRIT 52.4 % (38.2-49.6); HEMOGLOBIN 16.7 g/dL (14.0-18.0); LYMPHOCYTES # (AUTO) 0.6 (1.0-3.2); LYMPHOCYTES % 2.8 % (18.0-39.1); MEAN CORPUSCULAR HEMOGLOBIN 28.9 pg (28-32); MEAN CORPUSCULAR HGB CONC 31.9 g/dL (31-35); MEAN CORPUSCULAR VOLUME 90.7 fL (81-99); MONOCYTES # (AUTO) 1.2 (0.2-0.8); MONOCYTES % 5.5 % (4.4-11.3); NEUTROPHILS # (AUTO) 19.5 (2.1-6.9); NEUTROPHILS % 89.3 % (38.7-80.0); PLATELET COUNT 222 x10e3/uL (140-360); RED BLOOD COUNT 5.78 x10e6/uL (4.3-5.7); RED CELL DISTRIBUTION WIDTH 14.7 % (11.7-14.4)
[2022-12-19 16:18] LABS: INR 1.05; PROTHROMBIN TIME 14.2 seconds (11.9-14.5)
[2022-12-19 16:19] LABS: PARTIAL THROMBOPLASTIN TIME 34.3 seconds (23.8-35.5)
[2022-12-19 16:29] LABS: ALBUMIN 3.6 g/dL (3.5-5.0); ALBUMIN/GLOBULIN RATIO 0.9 (0.8-2.0); ALKALINE PHOSPHATASE 104 IU/L (40-150); ANION GAP 16.1 mmol/L (8-16); BLOOD UREA NITROGEN 19 mg/dL (7-26); BUN/CREATININE RATIO 15 (6-25); CALCIUM 9.2 mg/dL (8.4-10.2); CARBON DIOXIDE 21 mmol/L (22-29); CHLORIDE 103 mmol/L (98-107); CREATINE KINASE 30 IU/L (30-200); CREATININE, SERUM 1.24 mg/dL (0.72-1.25); GLUCOSE 112 mg/dL (74-118); LIPASE 5 U/L (8-78); MAGNESIUM 1.7 MG/DL (1.3-2.1); POTASSIUM 4.1 mmol/L (3.5-5.1); SODIUM 136 mmol/L (136-145)
[2022-12-19 16:32] LABS: B-TYPE NATRIURETIC PEPTIDE2 607.4 pg/mL (0-100)
[2022-12-19 16:34] LABS: ALANINE AMINOTRANSFERASE < 6 IU/L (0-55)
[2022-12-19] MEDS ORDERED: IOPAMIDOL 370 MG/ML 100 ML INFUS..BTL INJ ONE (16:43)
[2022-12-19] MEDS ORDERED: METOPROLOL TARTRATE INJ 1 MG/ML VIAL IV ONE (17:00)
[2022-12-19 18:26] LABS: CLARITY,URINE SL CLOUDY (CLEAR); COLOR,URINE YELLOW (YELLOW); KETONES,URINE NEGATIVE (NEGATIVE); LEUKOCYTE ESTERASE ,URINE NEGATIVE (NEGATIVE); NITRITE,URINE NEGATIVE (NEGATIVE); PROTEIN,URINE DIPSTICK 1+ (NEGATIVE); URINE UROBILINOGEN 0.2 mg/dL (0.2 - 1)
[2022-12-19 18:38] LABS: BACTERIA,URINE RARE /HPF; EPITHELIAL CELLS,URINE RARE /LPF; RBC,URINE 0-5 /HPF (0-5)
[2022-12-19 18:51] LABS: ABG HCO3 22 mmol/L (22-26); ABG PCO2 35 mmHg (35-45); ABG PO2 92 mmHg (80-105); ABG TCO2 23
[2022-12-19] MEDS ORDERED: DEXTROSE 50% SYRINGE 50 ML IV PRN (21:45)
[2022-12-19] MEDS ORDERED: MELATONIN 3 MG TAB PO PRN (21:45)
[2022-12-19] MEDS ORDERED: HYDRALAZINE HCL 20 MG/ML VIAL IV PRN (21:45)
[2022-12-19] MEDS ORDERED: MAGNESIUM/ALUMINUM/SIMETHICONE 30 ML UDC PO PRN (21:45)
[2022-12-19] MEDS ORDERED: THIAMINE HCL INJ 100 MG/ML 2ML VIAL IV ONE (21:45)
[2022-12-19] MEDS: ONDANSETRON HCL INJ 2MG/ML 2ML 2 MG/ML VIAL IV PRN (22:19)
[2022-12-19] MEDS: Morphine 2mg Syringe 2 MG/ML SYR IV PRN (22:20)
[2022-12-19] MEDS: LACTATED RINGER'S 1,000 ML INJ SCH (22:24)
[2022-12-19] MEDS: METHYLPREDNISOLONE SOD SUCC 40 MG/ML VIAL 1ML IV SCH (22:35)
[2022-12-19] MEDS: IPRATROPIUM BROMIDE 0.02% 2.5 ML NEB NEB SCH (23:25)
[2022-12-19] MEDS: ALBUTEROL SULF 0.083% NEB SOLN 3 ML NEB NEB PRN (23:25)
[2022-12-20] VITALS (39 sets, daily range): BP systolic 85–147; BP diastolic 53–102; PULSE 64–93; RESP 13–32; TEMP 97.3–98.8; O2SAT 88–98
[2022-12-20] MEDS: ONDANSETRON HCL INJ 2MG/ML 2ML 2 MG/ML VIAL IV PRN (04:30)
[2022-12-20] MEDS: Morphine 2mg Syringe 2 MG/ML SYR IV PRN (04:31)
[2022-12-20 05:49] LABS: BASOPHILS % 0.3 % (0.0-1.0); EOSINOPHILS # (AUTO) 0.1 (0.0-0.4); EOSINOPHILS % 0.4 % (0.0-6.0); HEMATOCRIT 48.9 % (38.2-49.6); HEMOGLOBIN 15.3 g/dL (14.0-18.0); LYMPHOCYTES # (AUTO) 0.6 (1.0-3.2); LYMPHOCYTES % 3.8 % (18.0-39.1); MEAN CORPUSCULAR HEMOGLOBIN 28.4 pg (28-32); MEAN CORPUSCULAR HGB CONC 31.3 g/dL (31-35); MEAN CORPUSCULAR VOLUME 90.9 fL (81-99); MONOCYTES # (AUTO) 0.1 (0.2-0.8); MONOCYTES % 0.7 % (4.4-11.3); NEUTROPHILS # (AUTO) 13.6 (2.1-6.9); NEUTROPHILS % 94.2 % (38.7-80.0); PLATELET COUNT 172 x10e3/uL (140-360); RED BLOOD COUNT 5.38 x10e6/uL (4.3-5.7); RED CELL DISTRIBUTION WIDTH 14.5 % (11.7-14.4)
[2022-12-20 06:12] LABS: CREATINE KINASE 53 IU/L (30-200)
[2022-12-20 06:14] LABS: MAGNESIUM 1.8 MG/DL (1.3-2.1)
[2022-12-20 06:31] LABS: ALBUMIN/GLOBULIN RATIO 0.8 (0.8-2.0); ALKALINE PHOSPHATASE 94 IU/L (40-150); ANION GAP 15.4 mmol/L (8-16); BLOOD UREA NITROGEN 18 mg/dL (7-26); BUN/CREATININE RATIO 20 (6-25); CALCIUM 8.7 mg/dL (8.4-10.2); CARBON DIOXIDE 19 mmol/L (22-29); CHLORIDE 108 mmol/L (98-107); GLUCOSE 149 mg/dL (74-118); POTASSIUM 4.4 mmol/L (3.5-5.1); SODIUM 138 mmol/L (136-145)
[2022-12-20 06:33] LABS: ALANINE AMINOTRANSFERASE < 6 IU/L (0-55)
[2022-12-20 06:34] LABS: THYROID STIMULATING HORMONE 1.93 uIU/mL (0.350-4.940)
[2022-12-20] MEDS: IPRATROPIUM BROMIDE 0.02% 2.5 ML NEB NEB SCH ×3 (07:19→19:15)
[2022-12-20] MEDS: INSULIN REGULAR, HUMAN 100 UNIT/1 ML SQ SCH ×4 (07:30→20:44)
[2022-12-20] MEDS ORDERED: NON-FORMULARY MEDICATION (Leflunomide 20 MG) PO SCH (09:00)
[2022-12-20] MEDS: DOCUSATE SODIUM 100 MG CAP PO SCH ×2 (09:00→16:46)
[2022-12-20] MEDS: LEVOTHYROXINE SODIUM 75 MCG TAB PO SCH (12:30)
[2022-12-20] MEDS: METHYLPREDNISOLONE SOD SUCC 40 MG/ML VIAL 1ML IV SCH ×2 (12:30→20:33)
[2022-12-20] MEDS: PANTOPRAZOLE SOD 40 MG TABEC PO SCH (12:31)
[2022-12-20] MEDS: ASPIRIN 81 MG ENTERIC COATED PO SCH (12:31)
[2022-12-20] MEDS: FINASTERIDE 5 MG TAB PO SCH (12:31)
[2022-12-20] MEDS: MULTIVITAMINS/MINERALS TAB PO SCH (12:31)
[2022-12-20] MEDS: TRAMADOL HCL 50 MG TAB PO PRN (12:40)
[2022-12-20] MEDS: LACTATED RINGER'S 1,000 ML INJ SCH (12:43)
[2022-12-20] MEDS: GUAIFENESIN/DEXTROMETHORPHAN LIQD 5 ML UDC PO PRN (16:47)
[2022-12-20] MEDS ORDERED: ENOXAPARIN SOD INJ 40 MG/0.4 ML SYR SC SCH (17:00)
[2022-12-20] MEDS: ALBUTEROL SULF 0.083% NEB SOLN 3 ML NEB NEB PRN (19:15)
[2022-12-20] MEDS: ATORVASTATIN 10 MG TAB PO SCH (20:33)
[2022-12-20] MEDS: TAMSULOSIN HCL 0.4 MG CAP PO SCH (20:33)
[2022-12-21] VITALS (24 sets, daily range): BP systolic 84–146; BP diastolic 57–86; PULSE 62–80; RESP 12–28; TEMP 97.9–98.4; O2SAT 95–100
[2022-12-21] MEDS: IPRATROPIUM BROMIDE 0.02% 2.5 ML NEB NEB SCH ×4 (01:50→19:20)
[2022-12-21] MEDS: LACTATED RINGER'S 1,000 ML INJ SCH (05:16)
[2022-12-21] MEDS: TRAMADOL HCL 50 MG TAB PO PRN (05:33)
[2022-12-21 06:05] LABS: ANION GAP 13.2 mmol/L (8-16); CALCIUM 8.6 mg/dL (8.4-10.2); CREATININE, SERUM 0.91 mg/dL (0.72-1.25); POTASSIUM 5.2 mmol/L (3.5-5.1)
[2022-12-21] MEDS: INSULIN REGULAR, HUMAN 100 UNIT/1 ML SQ SCH ×4 (07:35→20:02)
[2022-12-21] MEDS: LEVOTHYROXINE SODIUM 75 MCG TAB PO SCH (08:30)
[2022-12-21] MEDS: DOCUSATE SODIUM 100 MG CAP PO SCH ×2 (08:30→16:59)
[2022-12-21] MEDS: FINASTERIDE 5 MG TAB PO SCH (08:30)
[2022-12-21] MEDS: MULTIVITAMINS/MINERALS TAB PO SCH (08:30)
[2022-12-21] MEDS: METHYLPREDNISOLONE SOD SUCC 40 MG/ML VIAL 1ML IV SCH ×2 (08:30→20:02)
[2022-12-21] MEDS: ASPIRIN 81 MG ENTERIC COATED PO SCH (08:30)
[2022-12-21] MEDS: PANTOPRAZOLE SOD 40 MG TABEC PO SCH (08:30)
[2022-12-21 12:23] LABS: BASOPHILS % 0.1 % (0.0-1.0); EOSINOPHILS % 0.1 % (0.0-6.0); HEMATOCRIT 44.7 % (38.2-49.6); HEMOGLOBIN 14.2 g/dL (14.0-18.0); LYMPHOCYTES # (AUTO) 0.7 (1.0-3.2); LYMPHOCYTES % 3.9 % (18.0-39.1); MEAN CORPUSCULAR HEMOGLOBIN 28.3 pg (28-32); MEAN CORPUSCULAR HGB CONC 31.8 g/dL (31-35); MEAN CORPUSCULAR VOLUME 89.2 fL (81-99); MONOCYTES # (AUTO) 0.7 (0.2-0.8); MONOCYTES % 3.9 % (4.4-11.3); NEUTROPHILS # (AUTO) 16.9 (2.1-6.9); NEUTROPHILS % 91.4 % (38.7-80.0); PLATELET COUNT 197 x10e3/uL (140-360); RED BLOOD COUNT 5.01 x10e6/uL (4.3-5.7); RED CELL DISTRIBUTION WIDTH 14.6 % (11.7-14.4)
[2022-12-21] MEDS: APIXABAN 5 MG TABLET PO SCH (16:58)
[2022-12-21] MEDS: TAMSULOSIN HCL 0.4 MG CAP PO SCH (20:02)
[2022-12-21] MEDS: ATORVASTATIN 10 MG TAB PO SCH (20:02)
[2022-12-21] MEDS: ACETAMINOPHEN 325 MG TAB PO PRN (20:30)
[2022-12-22] VITALS (12 sets, daily range): BP systolic 123–154; BP diastolic 83–95; PULSE 65–90; RESP 13–26; TEMP 97.6–98.4; O2SAT 90–100
[2022-12-22] MEDS: IPRATROPIUM BROMIDE 0.02% 2.5 ML NEB NEB SCH ×2 (01:20→07:54)
[2022-12-22] MEDS: METHYLPREDNISOLONE SOD SUCC 40 MG/ML VIAL 1ML IV SCH ×2 (08:19→21:51)
[2022-12-22] MEDS: DOCUSATE SODIUM 100 MG CAP PO SCH ×2 (08:20→16:30)
[2022-12-22] MEDS: ASPIRIN 81 MG ENTERIC COATED PO SCH (08:20)
[2022-12-22] MEDS: PANTOPRAZOLE SOD 40 MG TABEC PO SCH (08:20)
[2022-12-22] MEDS: MULTIVITAMINS/MINERALS TAB PO SCH (08:20)
[2022-12-22] MEDS: APIXABAN 5 MG TABLET PO SCH ×2 (08:20→17:04)
[2022-12-22] MEDS: LEVOTHYROXINE SODIUM 75 MCG TAB PO SCH (08:20)
[2022-12-22] MEDS: FINASTERIDE 5 MG TAB PO SCH (08:20)
[2022-12-22] MEDS: INSULIN REGULAR, HUMAN 100 UNIT/1 ML SQ SCH ×4 (08:21→21:00)
[2022-12-22] MEDS ORDERED: GUAIFENESIN/CODEINE 5 ML LIQD PO ONE (10:00)
[2022-12-22] MEDS: ALBUTEROL/IPRATROPIUM 3 ML NEB NEB SCH ×3 (10:00→18:20)
[2022-12-22] MEDS ORDERED: GUAIFENESIN/CODEINE 5 ML LIQD PO PRN (10:00)
[2022-12-22] MEDS ORDERED: ALBUTEROL/IPRATROPIUM 3 ML NEB NEB PRN (10:00)
[2022-12-22 11:15] LABS: BASOPHILS % 0.1 % (0.0-1.0); EOSINOPHILS % 0.3 % (0.0-6.0); HEMATOCRIT 46.7 % (38.2-49.6); HEMOGLOBIN 14.8 g/dL (14.0-18.0); LYMPHOCYTES # (AUTO) 0.8 (1.0-3.2); LYMPHOCYTES % 5.1 % (18.0-39.1); MEAN CORPUSCULAR HEMOGLOBIN 28.6 pg (28-32); MEAN CORPUSCULAR HGB CONC 31.7 g/dL (31-35); MEAN CORPUSCULAR VOLUME 90.3 fL (81-99); MONOCYTES % 6.4 % (4.4-11.3); NEUTROPHILS # (AUTO) 13.9 (2.1-6.9); NEUTROPHILS % 87.6 % (38.7-80.0); PLATELET COUNT 196 x10e3/uL (140-360); RED BLOOD COUNT 5.17 x10e6/uL (4.3-5.7); RED CELL DISTRIBUTION WIDTH 14.6 % (11.7-14.4)
[2022-12-22 11:38] LABS: ALBUMIN 2.8 g/dL (3.5-5.0); ALBUMIN/GLOBULIN RATIO 0.8 (0.8-2.0); ANION GAP 13.4 mmol/L (8-16); CALCIUM 8.8 mg/dL (8.4-10.2); CREATININE, SERUM 0.88 mg/dL (0.72-1.25); POTASSIUM 4.4 mmol/L (3.5-5.1)
[2022-12-22] MEDS: ATORVASTATIN 10 MG TAB PO SCH (21:51)
[2022-12-22] MEDS: TAMSULOSIN HCL 0.4 MG CAP PO SCH (21:51)
[2022-12-22] MEDS: GUAIFENESIN/DEXTROMETHORPHAN LIQD 5 ML UDC PO PRN (21:58)
[2022-12-22] MEDS ORDERED: SODIUM CHLORIDE 0.9% 250ML 250 ML ONE (23:56)
[2022-12-23] VITALS (14 sets, daily range): BP systolic 111–133; BP diastolic 60–112; PULSE 66–152; RESP 17–23; TEMP 97.5–98.8; O2SAT 94–100
[2022-12-23] MEDS: ALBUTEROL/IPRATROPIUM 3 ML NEB NEB SCH ×4 (03:15→19:30)
[2022-12-23] MEDS ORDERED: METOPROLOL TARTRATE 25 MG TAB PO SCH (04:10)
[2022-12-23] MEDS: GUAIFENESIN/DEXTROMETHORPHAN LIQD 5 ML UDC PO PRN (04:14)
[2022-12-23] MEDS ORDERED: METOPROLOL TARTRATE INJ 1 MG/ML VIAL IV PRN (04:15)
[2022-12-23 05:39] LABS: BASOPHILS % 0.3 % (0.0-1.0); EOSINOPHILS % 0.4 % (0.0-6.0); HEMATOCRIT 47.8 % (38.2-49.6); HEMOGLOBIN 14.7 g/dL (14.0-18.0); LYMPHOCYTES # (AUTO) 0.8 (1.0-3.2); LYMPHOCYTES % 7.4 % (18.0-39.1); MEAN CORPUSCULAR HEMOGLOBIN 28.2 pg (28-32); MEAN CORPUSCULAR HGB CONC 30.8 g/dL (31-35); MEAN CORPUSCULAR VOLUME 91.6 fL (81-99); MONOCYTES # (AUTO) 0.9 (0.2-0.8); MONOCYTES % 8.1 % (4.4-11.3); NEUTROPHILS # (AUTO) 9.1 (2.1-6.9); NEUTROPHILS % 82.6 % (38.7-80.0); PLATELET COUNT 201 x10e3/uL (140-360); RED BLOOD COUNT 5.22 x10e6/uL (4.3-5.7); RED CELL DISTRIBUTION WIDTH 14.3 % (11.7-14.4)
[2022-12-23 06:04] LABS: ANION GAP 12.2 mmol/L (8-16); CALCIUM 8.6 mg/dL (8.4-10.2); CREATININE, SERUM 0.89 mg/dL (0.72-1.25); POTASSIUM 4.2 mmol/L (3.5-5.1)
[2022-12-23] MEDS: INSULIN REGULAR, HUMAN 100 UNIT/1 ML SQ SCH ×4 (07:30→21:00)
[2022-12-23] MEDS: PANTOPRAZOLE SOD 40 MG TABEC PO SCH (09:30)
[2022-12-23] MEDS: FINASTERIDE 5 MG TAB PO SCH (09:30)
[2022-12-23] MEDS: LEVOTHYROXINE SODIUM 75 MCG TAB PO SCH (09:30)
[2022-12-23] MEDS: METHYLPREDNISOLONE SOD SUCC 40 MG/ML VIAL 1ML IV SCH ×2 (09:30→22:13)
[2022-12-23] MEDS: DOCUSATE SODIUM 100 MG CAP PO SCH ×2 (09:30→17:19)
[2022-12-23] MEDS: ASPIRIN 81 MG ENTERIC COATED PO SCH (09:30)
[2022-12-23] MEDS: APIXABAN 5 MG TABLET PO SCH ×2 (09:31→17:17)
[2022-12-23] MEDS: MULTIVITAMINS/MINERALS TAB PO SCH (09:31)
[2022-12-23] MEDS: METOPROLOL TARTRATE 25 MG TAB PO SCH ×3 (12:02→23:47)
[2022-12-23] MEDS ORDERED: ONDANSETRON HCL 4 MG ORAL DISINTEGRATING TAB PO PRN (12:45)
[2022-12-23] MEDS: ATORVASTATIN 10 MG TAB PO SCH (22:12)
[2022-12-23] MEDS: TAMSULOSIN HCL 0.4 MG CAP PO SCH (22:12)
[2022-12-24] VITALS (13 sets, daily range): BP systolic 109–133; BP diastolic 54–91; PULSE 66–83; RESP 17–22; TEMP 97.5–98.6; O2SAT 94–100
[2022-12-24] MEDS: ALBUTEROL/IPRATROPIUM 3 ML NEB NEB SCH ×4 (00:08→18:45)
[2022-12-24] MEDS: METOPROLOL TARTRATE 25 MG TAB PO SCH ×3 (05:34→16:54)
[2022-12-24] MEDS: INSULIN REGULAR, HUMAN 100 UNIT/1 ML SQ SCH ×4 (07:30→21:00)
[2022-12-24] MEDS: METHYLPREDNISOLONE SOD SUCC 40 MG/ML VIAL 1ML IV SCH ×2 (10:17→21:15)
[2022-12-24] MEDS: DOCUSATE SODIUM 100 MG CAP PO SCH ×2 (10:18→16:53)
[2022-12-24] MEDS: MULTIVITAMINS/MINERALS TAB PO SCH (10:18)
[2022-12-24] MEDS: APIXABAN 5 MG TABLET PO SCH ×2 (10:18→16:53)
[2022-12-24] MEDS: ASPIRIN 81 MG ENTERIC COATED PO SCH (10:18)
[2022-12-24] MEDS: LEVOTHYROXINE SODIUM 75 MCG TAB PO SCH (10:18)
[2022-12-24] MEDS: FINASTERIDE 5 MG TAB PO SCH (10:18)
[2022-12-24] MEDS: PANTOPRAZOLE SOD 40 MG TABEC PO SCH (10:36)
[2022-12-24] MEDS: TAMSULOSIN HCL 0.4 MG CAP PO SCH (21:14)
[2022-12-24] MEDS: ATORVASTATIN 10 MG TAB PO SCH (21:14)
[2022-12-25] VITALS (13 sets, daily range): BP systolic 109–141; BP diastolic 63–94; PULSE 65–75; RESP 17–24; TEMP 97.4–98.4; O2SAT 94–100
[2022-12-25] MEDS: METOPROLOL TARTRATE 25 MG TAB PO SCH ×4 (00:05→17:30)
[2022-12-25] MEDS: ALBUTEROL/IPRATROPIUM 3 ML NEB NEB SCH ×5 (01:07→23:00)
[2022-12-25 05:51] LABS: BASOPHILS # (AUTO) 0.1 (0.0-0.1); BASOPHILS % 0.7 % (0.0-1.0); EOSINOPHILS % 0.1 % (0.0-6.0); HEMATOCRIT 49.3 % (38.2-49.6); HEMOGLOBIN 15.2 g/dL (14.0-18.0); LYMPHOCYTES # (AUTO) 1.4 (1.0-3.2); LYMPHOCYTES % 9.1 % (18.0-39.1); MEAN CORPUSCULAR HEMOGLOBIN 28.3 pg (28-32); MEAN CORPUSCULAR HGB CONC 30.8 g/dL (31-35); MEAN CORPUSCULAR VOLUME 91.8 fL (81-99); MONOCYTES % 6.4 % (4.4-11.3); NEUTROPHILS # (AUTO) 12.3 (2.1-6.9); NEUTROPHILS % 81.8 % (38.7-80.0); PLATELET COUNT 236 x10e3/uL (140-360); RED BLOOD COUNT 5.37 x10e6/uL (4.3-5.7); RED CELL DISTRIBUTION WIDTH 14.4 % (11.7-14.4)
[2022-12-25 06:13] LABS: ANION GAP 14.4 mmol/L (8-16); CALCIUM 8.5 mg/dL (8.4-10.2); CREATININE, SERUM 0.89 mg/dL (0.72-1.25); POTASSIUM 4.4 mmol/L (3.5-5.1)
[2022-12-25] MEDS: INSULIN REGULAR, HUMAN 100 UNIT/1 ML SQ SCH ×4 (07:30→21:00)
[2022-12-25] MEDS: APIXABAN 5 MG TABLET PO SCH ×2 (09:26→17:30)
[2022-12-25] MEDS: DOCUSATE SODIUM 100 MG CAP PO SCH ×2 (09:27→17:30)
[2022-12-25] MEDS: MULTIVITAMINS/MINERALS TAB PO SCH (09:27)
[2022-12-25] MEDS: FINASTERIDE 5 MG TAB PO SCH (09:27)
[2022-12-25] MEDS: ASPIRIN 81 MG ENTERIC COATED PO SCH (09:27)
[2022-12-25] MEDS: PANTOPRAZOLE SOD 40 MG TABEC PO SCH (09:27)
[2022-12-25] MEDS: LEVOTHYROXINE SODIUM 75 MCG TAB PO SCH (09:27)
[2022-12-25] MEDS: TAMSULOSIN HCL 0.4 MG CAP PO SCH (22:03)
[2022-12-25] MEDS: ATORVASTATIN 10 MG TAB PO SCH (22:03)
[2022-12-26] VITALS: BP 130/65; PULSE 75; RESP 17; TEMP 97.6; O2SAT 100
[2022-12-26] MEDS: ACETAMINOPHEN 325 MG TAB PO PRN (03:08)
[2022-12-26 04:00] VITALS: BP 131/96; PULSE 82; RESP 22; TEMP 97.5; O2SAT 100
[2022-12-26] MEDS: METOPROLOL TARTRATE 25 MG TAB PO SCH ×2 (05:27→05:28)
[2022-12-26] MEDS: ALBUTEROL/IPRATROPIUM 3 ML NEB NEB SCH (06:05)
[2022-12-26 06:14] LABS: BASOPHILS # (AUTO) 0.1 (0.0-0.1); BASOPHILS % 0.5 % (0.0-1.0); EOSINOPHILS # (AUTO) 0.6 (0.0-0.4); EOSINOPHILS % 4.2 % (0.0-6.0); HEMOGLOBIN 15.4 g/dL (14.0-18.0); LYMPHOCYTES # (AUTO) 2.3 (1.0-3.2); LYMPHOCYTES % 14.9 % (18.0-39.1); MEAN CORPUSCULAR HEMOGLOBIN 28.3 pg (28-32); MEAN CORPUSCULAR HGB CONC 31.4 g/dL (31-35); MEAN CORPUSCULAR VOLUME 90.1 fL (81-99); MONOCYTES # (AUTO) 1.6 (0.2-0.8); MONOCYTES % 10.6 % (4.4-11.3); NEUTROPHILS # (AUTO) 10.4 (2.1-6.9); NEUTROPHILS % 67.2 % (38.7-80.0); PLATELET COUNT 238 x10e3/uL (140-360); RED BLOOD COUNT 5.44 x10e6/uL (4.3-5.7); RED CELL DISTRIBUTION WIDTH 14.7 % (11.7-14.4)
[2022-12-26 06:21] VITALS: PULSE 67; RESP 22; O2SAT 97
[2022-12-26 06:51] LABS: CALCIUM 8.4 mg/dL (8.4-10.2); CREATININE, SERUM 1.02 mg/dL (0.72-1.25)
[2022-12-26] MEDS: INSULIN REGULAR, HUMAN 100 UNIT/1 ML SQ SCH (07:26)
[2022-12-26 08:22] VITALS: BP 103/61; PULSE 74; RESP 20; TEMP 97.9; O2SAT 100
[2022-12-26 08:26] VITALS: BP 103/61; PULSE 74; RESP 20; TEMP 97.9; O2SAT 100
[2022-12-26] MEDS: PANTOPRAZOLE SOD 40 MG TABEC PO SCH (08:33)
[2022-12-26] MEDS: MULTIVITAMINS/MINERALS TAB PO SCH (08:33)
[2022-12-26] MEDS: ASPIRIN 81 MG ENTERIC COATED PO SCH (08:33)
[2022-12-26] MEDS: FINASTERIDE 5 MG TAB PO SCH (08:33)
[2022-12-26] MEDS: APIXABAN 5 MG TABLET PO SCH (08:33)
[2022-12-26] MEDS: LEVOTHYROXINE SODIUM 75 MCG TAB PO SCH (08:33)
[2022-12-26] MEDS: DOCUSATE SODIUM 100 MG CAP PO SCH (08:34)
[2022-12-26] MEDS ORDERED: IPRATROPIUM BROMIDE 0.02% 2.5 ML NEB NEB SCH (13:00)
[2022-12-26] MEDS ORDERED: ALBUTEROL SULF 0.083% NEB SOLN 3 ML NEB NEB SCH (13:00)
== END 2022-12-26 11:47 | disposition home health service (06) | DRG 871 ==
LOC: ER 15:29 → ERHOLD 18:40 → ICU 21:55 → MED/SURG2 12-22 17:43
PROVIDERS: ADMIT Internal Medicine; ATTEND Internal Medicine
DX: A41.9 Sepsis, unspecified organism (principal); G92.8 Other toxic encephalopathy; G92.9 Unspecified toxic encephalopathy; J18.9 Pneumonia, unspecified organism; N39.0 Urinary tract infection, site not specified; N17.9 Acute kidney failure, unspecified; R65.20 Severe sepsis without septic shock; N40.1 Benign prostatic hyperplasia with lower urinary tract symptoms; R33.8 Other retention of urine; E66.01 Morbid (severe) obesity due to excess calories; J84.10 Pulmonary fibrosis, unspecified; Z20.822 Contact with and (suspected) exposure to COVID-19; M19.90 Unspecified osteoarthritis, unspecified site; I48.0 Paroxysmal atrial fibrillation; E03.9 Hypothyroidism, unspecified; R07.9 Chest pain, unspecified; K57.30 Diverticulosis of large intestine without perforation or abscess without bleeding; R53.81 Other malaise; E86.0 Dehydration; E11.9 Type 2 diabetes mellitus without complications; Z99.81 Dependence on supplemental oxygen; Z91.81 History of falling; Z68.32 Body mass index [BMI] 32.0-32.9, adult
CPT/HCPCS: 36415; 36600; 71045; 71046; 71260; 74177; 74230; 80048; 80053; 81001; 82550; 82805; 82948; 83036; 83605; 83690; 83735; 83880; 84100; 84443; 84484; 85025; 85610; 85730; 87040; 87086; 93005; 93306; 94640; 94799; 96372; 99284; J1650; J2270; J2405; J2543; J2920; J3411; J7030; J7050; Q9967

== ENCOUNTER 2024-01-13 17:20 | Emergency (ER) | payer MEDICARE, OTHER ==
[~2024-01-13] VITALS: Ht 167.6 cm; Wt 90.7 kg
[2024-01-13 17:38] VITALS: TEMP 97.6
[2024-01-13] MEDS ORDERED: SODIUM CHLORIDE FLUSH 10 ML SYR IV PRN (18:00)
[2024-01-13] MEDS ORDERED: SODIUM CHLORIDE 0.9% 100 ML ONE (18:12)
[2024-01-13 18:13] LABS: BASOPHILS # (AUTO) 0.1 (0.0-0.1); BASOPHILS % 0.5 % (0.0-1.0); EOSINOPHILS # (AUTO) 0.5 (0.0-0.4); EOSINOPHILS % 4.7 % (0.0-6.0); HEMATOCRIT 49.6 % (38.2-49.6); HEMOGLOBIN 15.6 g/dL (14.0-18.0); LYMPHOCYTES # (AUTO) 1.8 (1.0-3.2); LYMPHOCYTES % 16.5 % (18.0-39.1); MEAN CORPUSCULAR HEMOGLOBIN 29.2 pg (28-32); MEAN CORPUSCULAR HGB CONC 31.5 g/dL (31-35); MEAN CORPUSCULAR VOLUME 92.9 fL (81-99); MONOCYTES % 8.8 % (4.4-11.3); NEUTROPHILS # (AUTO) 7.6 (2.1-6.9); PLATELET COUNT 193 x10e3/uL (140-360); RED BLOOD COUNT 5.34 x10e6/uL (4.3-5.7); RED CELL DISTRIBUTION WIDTH 14.7 % (11.7-14.4); WHITE BLOOD COUNT 11.06 x10e3/uL (4.8-10.8)
[2024-01-13] MEDS ORDERED: IOPAMIDOL 370 MG/ML 100 ML INFUS..BTL INJ ONE (18:13)
[2024-01-13 18:22] LABS: INR 1.13; PROTHROMBIN TIME 15.3 seconds (11.9-14.5)
[2024-01-13 18:23] LABS: PARTIAL THROMBOPLASTIN TIME 34.8 seconds (23.8-35.5)
[2024-01-13 18:27] LABS: BILIRUBIN,TOTAL 0.6 mg/dL (0.2-1.2)
[2024-01-13 18:29] LABS: ALBUMIN 3.3 g/dL (3.5-5.0); ALKALINE PHOSPHATASE 68 IU/L (40-150); ANION GAP 13.1 mmol/L (8-16); BLOOD UREA NITROGEN 26 mg/dL (7-26); BUN/CREATININE RATIO 20 (6-25); CALCIUM 8.8 mg/dL (8.4-10.2); CARBON DIOXIDE 22 mmol/L (22-29); CHLORIDE 109 mmol/L (98-107); CREATININE, SERUM 1.31 mg/dL (0.72-1.25); EST GLOMERULAR FILTRATION RATE 55 ML/MIN (>=60); GLUCOSE 127 mg/dL (74-118); POTASSIUM 4.1 mmol/L (3.5-5.1); SODIUM 140 mmol/L (136-145); TOTAL PROTEIN 6.6 g/dL (6.5-8.1)
[2024-01-13 18:33] LABS: ALANINE AMINOTRANSFERASE < 6 IU/L (0-55)
[2024-01-13 18:35] LABS: TROPONIN I < 0.001 ng/mL (0-0.300)
[2024-01-13 19:12] VITALS: PULSE 79; RESP 16
[2024-01-13 19:22] LABS: BILIRUBIN,URINE NEGATIVE (NEGATIVE); CLARITY,URINE SL CLOUDY (CLEAR); COLOR,URINE YELLOW (YELLOW); GLUCOSE, URINE NEGATIVE (NEGATIVE); KETONES,URINE NEGATIVE (NEGATIVE); LEUKOCYTE ESTERASE ,URINE NEGATIVE (NEGATIVE); NITRITE,URINE NEGATIVE (NEGATIVE); PH,URINE 5 (5 - 7); PROTEIN,URINE DIPSTICK NEGATIVE (NEGATIVE); URINE UROBILINOGEN 0.2 mg/dL (0.2 - 1)
[2024-01-13 19:33] LABS: WBC,URINE (MAN) 0-5 /HPF (0-5)
[2024-01-13 19:34] LABS: TRANSITIONAL EPI CELLS,URINE FEW
[2024-01-13 20:51] VITALS: BP 130/88; PULSE 72; RESP 16; O2SAT 96
== END 2024-01-13 20:47 | disposition home or self-care (01) ==
LOC: ER 17:31
DX: M62.81 Muscle weakness (generalized) (principal); G45.9 Transient cerebral ischemic attack, unspecified; I10 Essential (primary) hypertension; I50.9 Heart failure, unspecified; E78.5 Hyperlipidemia, unspecified; I48.91 Unspecified atrial fibrillation; E03.9 Hypothyroidism, unspecified; J84.10 Pulmonary fibrosis, unspecified
CPT/HCPCS: 36415; 70450; 70496; 70498; 71045; 80053; 81001; 83880; 84484; 85025; 85610; 85730; 93005; 94760; 99284; J7050; Q9967

== ENCOUNTER 2024-04-07 15:19 | Emergency (ER) | payer MEDICARE, OTHER ==
[~2024-04-07] VITALS: Ht 167.6 cm; Wt 90.7 kg
[2024-04-07 15:28] VITALS: TEMP 98.5
[2024-04-07 16:02] LABS: BASOPHILS # (AUTO) 0.1 (0.0-0.1); BASOPHILS % 0.4 % (0.0-1.0); EOSINOPHILS # (AUTO) 0.5 (0.0-0.4); EOSINOPHILS % 4.4 % (0.0-6.0); HEMATOCRIT 52.6 % (38.2-49.6); HEMOGLOBIN 16.3 g/dL (14.0-18.0); LYMPHOCYTES % 16.8 % (18.0-39.1); MEAN CORPUSCULAR HEMOGLOBIN 28.3 pg (28-32); MEAN CORPUSCULAR VOLUME 91.5 fL (81-99); MONOCYTES # (AUTO) 1.4 (0.2-0.8); MONOCYTES % 11.7 % (4.4-11.3); NEUTROPHILS # (AUTO) 7.7 (2.1-6.9); NEUTROPHILS % 66.4 % (38.7-80.0); PLATELET COUNT 192 x10e3/uL (140-360); RED BLOOD COUNT 5.75 x10e6/uL (4.3-5.7); RED CELL DISTRIBUTION WIDTH 15.2 % (11.7-14.4); WHITE BLOOD COUNT 11.67 x10e3/uL (4.8-10.8)
[2024-04-07 16:13] LABS: INFLUENZAE A&B ANTIGEN (RAPID) NEGATIVE (NEGATIVE); RESPIRATORY SYNC. VIRUS NEGATIVE (NEGATIVE)
[2024-04-07 16:31] LABS: ANION GAP 14.6 mmol/L (8-16); CREATININE, SERUM 1.14 mg/dL (0.72-1.25); POTASSIUM 4.6 mmol/L (3.5-5.1)
[2024-04-07] MEDS ORDERED: MUCINEX DM ER1 EACH PO (17:00)
[2024-04-07 17:17] VITALS: PULSE 91; RESP 17
[2024-04-07 17:37] VITALS: BP 103/79; PULSE 91; RESP 20; O2SAT 100
== END 2024-04-07 17:30 | disposition home or self-care (01) ==
LOC: ER 15:26
DX: R06.02 Shortness of breath (principal); R05.9 Cough, unspecified; I10 Essential (primary) hypertension; I50.9 Heart failure, unspecified; I48.91 Unspecified atrial fibrillation; E03.9 Hypothyroidism, unspecified; E78.5 Hyperlipidemia, unspecified; Z11.52 Encounter for screening for COVID-19
CPT/HCPCS: 36415; 71046; 80048; 85025; 87400; 87420; 99283; U0002

== ENCOUNTER 2024-05-25 14:31 | Observation (INO) | payer MEDICARE, OTHER ==
[~2024-05-25] VITALS: Ht 167.6 cm; Wt 90.7 kg
[~2024-05-25 14:31] MED LIST changes: +MUCINEX DM ER1 EACH PO
[2024-05-25 14:40] VITALS: TEMP 97.8
[2024-05-25 15:11] LABS: BASOPHILS % 0.3 % (0.0-1.0); EOSINOPHILS # (AUTO) 0.2 (0.0-0.4); HEMATOCRIT 56.4 % (38.2-49.6); HEMOGLOBIN 17.1 g/dL (14.0-18.0); LYMPHOCYTES # (AUTO) 1.1 (1.0-3.2); LYMPHOCYTES % 10.7 % (18.0-39.1); MEAN CORPUSCULAR HEMOGLOBIN 27.9 pg (28-32); MEAN CORPUSCULAR HGB CONC 30.3 g/dL (31-35); MONOCYTES % 9.8 % (4.4-11.3); NEUTROPHILS # (AUTO) 7.5 (2.1-6.9); NEUTROPHILS % 76.7 % (38.7-80.0); PLATELET COUNT 184 x10e3/uL (140-360); RED BLOOD COUNT 6.13 x10e6/uL (4.3-5.7); RED CELL DISTRIBUTION WIDTH 16.7 % (11.7-14.4); WHITE BLOOD COUNT 9.78 x10e3/uL (4.8-10.8)
[2024-05-25 15:29] LABS: ALBUMIN 3.8 g/dL (3.5-5.0); ALBUMIN/GLOBULIN RATIO 0.9 (0.8-2.0); ALKALINE PHOSPHATASE 81 IU/L (40-150); ANION GAP 18.3 mmol/L (8-16); BILIRUBIN,TOTAL 0.8 mg/dL (0.2-1.2); BLOOD UREA NITROGEN 27 mg/dL (7-26); BUN/CREATININE RATIO 19 (6-25); CALCIUM 9.6 mg/dL (8.4-10.2); CARBON DIOXIDE 21 mmol/L (22-29); CHLORIDE 103 mmol/L (98-107); CREATININE, SERUM 1.41 mg/dL (0.72-1.25); EST GLOMERULAR FILTRATION RATE 50 ML/MIN (>=60); GLUCOSE 104 mg/dL (74-118); POTASSIUM 4.3 mmol/L (3.5-5.1); SODIUM 138 mmol/L (136-145); TOTAL PROTEIN 7.9 g/dL (6.5-8.1)
[2024-05-25 15:31] LABS: ALANINE AMINOTRANSFERASE < 6 IU/L (0-55)
[2024-05-25 15:35] LABS: TROPONIN I 0.031 ng/mL (0-0.300)
[2024-05-25 15:36] LABS: B-TYPE NATRIURETIC PEPTIDE2 466.5 pg/mL (0-100)
[2024-05-25] MEDS ORDERED: IOPAMIDOL 370 MG/ML 100 ML INFUS..BTL INJ ONE (15:36)
[2024-05-25] MEDS: LACTATED RINGER'S 1,000 ML INJ ONE (16:26)
[2024-05-25 17:08] VITALS: PULSE 110; RESP 19
[2024-05-25 17:14] LABS: CLARITY,URINE SL CLOUDY (CLEAR); COLOR,URINE YELLOW (YELLOW); GLUCOSE, URINE NEGATIVE (NEGATIVE); KETONES,URINE NEGATIVE (NEGATIVE); LEUKOCYTE ESTERASE ,URINE NEGATIVE (NEGATIVE); NITRITE,URINE NEGATIVE (NEGATIVE); PH,URINE 5.5 (5 - 7); PROTEIN,URINE DIPSTICK 1+ (NEGATIVE)
[2024-05-25 17:15] LABS: BACTERIA,URINE RARE /HPF; BILIRUBIN,URINE SMALL (NEGATIVE); EPITHELIAL CELLS,URINE FEW /LPF; HYALINE CASTS 0-1 (0-1); RBC,URINE 0-5 /HPF (0-5); URINE UROBILINOGEN 0.2 mg/dL (0.2 - 1); WBC,URINE (MAN) 0-5 /HPF (0-5)
[2024-05-25] MEDS: METHYLPREDNISOLONE SOD SUCC 40 MG/ML VIAL 1ML IV SCH (18:13)
[2024-05-25 20:30] VITALS: BP 103/79; PULSE 110; RESP 20; TEMP 98.3; O2SAT 95
[2024-05-25 21:39] VITALS: BP 97/66; PULSE 110; RESP 20; TEMP 98.3; O2SAT 95
[2024-05-26] VITALS: BP 96/58; PULSE 74; RESP 20; TEMP 97.8; O2SAT 94
[2024-05-26 04:00] VITALS: BP 110/86; PULSE 73; RESP 20; TEMP 98.6; O2SAT 96
[2024-05-26 05:42] LABS: BASOPHILS % 0.2 % (0.0-1.0); HEMATOCRIT 47.6 % (38.2-49.6); HEMOGLOBIN 15.1 g/dL (14.0-18.0); LYMPHOCYTES % 15.9 % (18.0-39.1); MEAN CORPUSCULAR HEMOGLOBIN 28.2 pg (28-32); MEAN CORPUSCULAR HGB CONC 31.7 g/dL (31-35); MONOCYTES # (AUTO) 0.3 (0.2-0.8); MONOCYTES % 5.1 % (4.4-11.3); NEUTROPHILS # (AUTO) 4.9 (2.1-6.9); NEUTROPHILS % 78.3 % (38.7-80.0); PLATELET COUNT 187 x10e3/uL (140-360); RED BLOOD COUNT 5.35 x10e6/uL (4.3-5.7); RED CELL DISTRIBUTION WIDTH 15.8 % (11.7-14.4)
[2024-05-26 06:10] VITALS: PULSE 74; RESP 20; O2SAT 96
[2024-05-26 06:14] LABS: ANION GAP 16.6 mmol/L (8-16); CALCIUM 8.9 mg/dL (8.4-10.2); CREATININE, SERUM 1.05 mg/dL (0.72-1.25); POTASSIUM 4.6 mmol/L (3.5-5.1)
[2024-05-26 08:00] VITALS: BP 110/86; PULSE 74; RESP 20; TEMP 98.6; O2SAT 96
[2024-05-26 08:36] VITALS: BP 113/77; PULSE 66; RESP 20; TEMP 97.9; O2SAT 95
[2024-05-26 11:43] VITALS: BP 141/78; PULSE 73; RESP 19; TEMP 98.1; O2SAT 100
[2024-05-26] MEDS ORDERED: MEDROLPACK PO (13:39)
[2024-05-26] MEDS ORDERED: Tessalon Perles PO (13:42)
[2024-05-26] MEDS ORDERED: ProAir HFA IH (13:45)
== END 2024-05-26 14:31 | disposition home or self-care (01) ==
LOC: ER 14:45 → ERHOLD 17:23 → MED/SURG2 18:20
PROVIDERS: ADMIT Internal Medicine; ATTEND Internal Medicine
DX: J84.10 Pulmonary fibrosis, unspecified (principal); I48.0 Paroxysmal atrial fibrillation; I11.0 Hypertensive heart disease with heart failure; I50.9 Heart failure, unspecified; R53.1 Weakness; R00.0 Tachycardia, unspecified; E03.9 Hypothyroidism, unspecified; E78.5 Hyperlipidemia, unspecified; S09.90XA Unspecified injury of head, initial encounter; W18.39XA Other fall on same level, initial encounter; Z79.899 Other long term (current) drug therapy; Z68.32 Body mass index [BMI] 32.0-32.9, adult; Z87.440 Personal history of urinary (tract) infections
CPT/HCPCS: 36415 ×2; 70450; 71260; 80048; 80053; 81001; 83605; 83880; 84484; 85025 ×2; 87040; 93005; 94799; 99284; G0378 ×2; J2470; J2919 ×2; J7121; Q9967